=== PATIENT | female | born 1950 | race Caucasian/White ===

== ENCOUNTER 2025-03-07 09:02 | Inpatient (IN) | payer MEDICARE, SELFPAY ==
[2025-03-07] VITALS (29 sets, daily range): BP systolic 81–194; BP diastolic 46–127; BMI 33.7; BMI 33.3
[2025-03-07 02:28] LABS: Hematocrit 46.5 % (37.0-47.0); Hemoglobin 15.5 g/dL (12.0-16.0); Mean Corp Hgb Conc. 33.3 g/dL (33.0-37.0); Mean Corpuscular Volume 99.1 fL (81.0-99.0); Nucleated Red Blood Cells % 0 %; Platelet Count 216 10^3/uL (130-400); Red Cell Dist. Width 13.6 % (11.5-14.5)
[2025-03-07 02:29] LABS: Urine Character Slightly Cloudy (Clear)
--- NOTE | 2025-03-07 02:36 | EDRN ---
This RN spoke w/ provider to request pain medication in waiting room as pt. approached desk c/o severe pain, provider did not place orders and reports must first evaluate pt. once pt. in . No rooms available at this time.
[2025-03-07 02:53] LABS: ALT (SGPT) 17 U/L (0-35); AST (SGOT) 20 U/L (14-36); Albumin 4.1 g/dl (3.5-5.0); Alkaline Phosphatase 91 U/L (38-126); Blood Urea Nitrogen 32 mg/dl (7-17); Calcium 9.7 mg/dl (8.4-10.2); Carbon Dioxide 19 mmol/L (22-30); Chloride 110 mmol/L (98-107); Glucose 173 mg/dl (70-99); Potassium 4.4 mmol/L (3.5-5.1); Sodium 138 mmol/L (135-145); Total Protein 6.9 g/dl (6.3-8.2); eGFR 28.84
[2025-03-07 03:18] LABS: Urine Squamous Cell None seen /LPF (Few)
[2025-03-07 03:19] LABS: Urine White Cell >100 /HPF (0-5)
--- NOTE | 2025-03-07 04:56 | ED.GENMED ---
History of Present Illness
<Velasquez Nolen MD, Resident - Last Filed: 03/07/25 06:19>
General
Chief Complaint: Flank Pain
Source: patient
Exam Limitations: none
Time Seen by Provider: 03/07/25 04:44
History of Present Illness
History of Present Illness:
This is a 74-year-old female with known history of renal stone many years ago presented to the emergency department with left-sided flank pain which started almost 2 to 3 hours ago. Reports some associated with nausea without vomiting. Denies any
dysuria or other urinary symptoms. Denies fever denies trauma, denies chest pain, shortness of breath, recent illness, diarrhea, constipation or any neurological symptoms.
Past History
<Velasquez Nolen MD, Resident - Last Filed: 03/07/25 06:19>
Past History
ED Past Medical History: HTN and Hypothyroidism
ED Past Surgical History: None
Social History
Tobacco: Smoker
Alcohol: None
Family History
Family History: Adopted
Review of Systems
<Velasquez Nolen MD, Resident - Last Filed: 03/07/25 06:19>
Review of Systems
Allergies reviewed?: Yes
Constitutional: Reports no symptoms
EENT: Reports no symptoms
Respiratory: Reports no symptoms
Cardiac: Reports no symptoms
ABD/GI: Reports nausea
: Reports flank pain (Left)
Musculoskeletal: Reports no symptoms
Skin: Reports no symptoms
Neurological: Reports no symptoms
Endocrine: Reports no symptoms
Hematologic/Lymphatic: Reports no symptoms
Psychiatric: Reports no symptoms
Phy Exam
<Velasquez Nolen MD, Resident - Last Filed: 03/07/25 06:19>
General Physical Exam
General Presentation: mild distress
General age: appears stated age
General Skin: warm
General Habitus: normal
Cardiovascular Exam
Cardiovascular Exam: regular rate/rhythm and no murmur
Pulmonary Exam
Pulmonary Exam: lungs clear and no respiratory distress
Gastrointestinal Exam
Gastrointestinal Exam: non tender, soft, non distended and no cva tenderness
Neurological Exam
Neurological Exam: alert
Course
<Velasquez Nolen MD, Resident - Last Filed: 03/07/25 06:19>
Orders/Labs/Results
Orders:
Orders
03/07/25 02:13
Complete Blood Count/With Diff Urgent
Comprehensive Metabolic Panel Urgent
Urinalysis Reflex To Culture Urgent
Date Specimen was Collected: 03/07/25
Time Specimen was Collected: 02:08
Urine Microscopic Reflex Cult Urgent
Urine Culture Urgent
RADHA Source: U
Specimen Description:
Date Specimen was Collected: 03/07/25
Time Specimen was Collected: 02:08
03/07/25 02:44
CT Abd/pel Without Iv Or Oral Urgent
Comment:
Reason For Exam: R flank pain
03/07/25 04:58
0.9% Sodium Chloride 1000 ml [Nss] 1,000 ml IV BOLUS
Morphine Sulfate 4 mg IV NOW STA
03/07/25 05:00
Piperacillin/Tazo 3.375 Gram [Zosyn] 3.375 gram in 50 ml IV NOW
03/07/25 05:08
UROLOGY CONSULT Urgent
Consulting Provider: Zach Luis
Was physician already notified: Yes
03/07/25 05:38
Blood Culture Q30M
RADHA Source: Blood/Venous
Specimen Description:
Blood Culture Q30M
RADHA Source: Blood/Venous
Specimen Description:
03/07/25 06:11
HYDROmorphone [Dilaudid] 0.5 mg IV NOW STA
03/07/25 08:09
Acetaminophen [Tylenol] 1,000 mg .ROUTE .STK-MED ONE
03/07/25 08:10
Acetaminophen [Tylenol] 1,000 mg PO NOW STA
03/07/25 08:14
Fentanyl Citrate/Pf [Sublimaze] 25 mcg IV [id number] PRN
HYDROmorphone [Dilaudid] 0.25 mg IV PACU-Q5MPRN PRN
HYDROmorphone [Dilaudid] 0.5 mg IV PACU-Q5MPRN PRN
Ondansetron Injectable [Zofran] 4 mg IV PACU-ONCEPRN PRN
Prochlorperazine [Compazine] 5 mg IV PACU-ONCEPRN PRN
Notify MD As Directed
Notify physician if: for SDS patients with known or suspected sleep obstructive sleep apnea, monitor in the
PACU.
Notify MD for any apneic/desaturation episodes
O2 Therapy [RESP] Urgent
Titrate/Wean O2 to maintain O2 sat greater than (%): 92
Special Instructions: -Provide supplemental oxygen to achieve O2 sat of 92% or greater.
-After 15 min, may wean O2 and discontinue if patient is able to maintain O2 sat of 92%
or greater during recovery period.
If patient is a discharge home, without oxygen therapy, notify anestheiologist if
unable to maintain O2 SAT of 92% or greater on room air for MD clearance.
03/07/25 08:15
Normosol (Mult Electrolytes) [Normosol-R/Plasmalyte-A] 1,000 ml IV PER PROTOCOL
03/07/25 08:40
NSS 1000mL Bolus over 1 hr 0.9% Sodium Chloride 1000 ml [Nss] 1,000 ml IV BOLUS
Abnormal Lab Results
03/07/25
02:13
WBC 13.4 H 10^3/uL
(4.8-10.8)
MCV 99.1 H fL
(81.0-99.0)
MCH 33.0 H pg
(27.0-31.0)
Abs Immat Gran (auto) 0.1 H 10^3/uL
(0-0.05)
Absolute Neuts (auto) 11.7 H 10^3/uL
(1.4-6.5)
Neutrophils % 86.8 H %
(42.2-75.2)
Lymphocytes % 10.1 L %
(20.5-51.1)
Monocytes % 1.3 L %
(1.7-9.3)
Chloride 110 H mmol/L
(98-107)
Carbon Dioxide 19 L mmol/L
(22-30)
BUN 32 H mg/dl
(7-17)
Creatinine 1.8 H mg/dL
(0.6-1.0)
Glucose 173 H mg/dl
(70-99)
Ur Occult Blood Reflex 4+ A
(Negative)
Urine Nitrite (Reflex) Positive A
(Negative)
Leukocyte Esterase Rfl 3+ A
(Negative)
Urine WBC (Reflex) >100 A /HPF
(0-5)
Urine Glucose 4+ A
(Negative)
Urine Albumin (Reflex) 3+ A
(Neg - Trace)
03/07/25 02:13
03/07/25 02:13
Vital Signs
Initial and Last Documented VS:
Initial Vital Signs
Temp Pulse Resp BP Pulse Ox
36.3 C 92 24 194/101 96
03/07/25 02:00 03/07/25 02:00 03/07/25 02:00 03/07/25 02:00 03/07/25 02:00
Last Documented Vital Signs
Temp Pulse Resp BP Pulse Ox
38.0 C H 98 29 172/77 92
03/07/25 08:07 03/07/25 06:21 03/07/25 06:21 03/07/25 04:30 03/07/25 08:07
<Sang Kaur MD - Last Filed: 03/07/25 08:43>
Orders/Labs/Results
Orders:
Orders
03/07/25 02:13
Complete Blood Count/With Diff Urgent
Comprehensive Metabolic Panel Urgent
Urinalysis Reflex To Culture Urgent
Date Specimen was Collected: 03/07/25
Time Specimen was Collected: 02:08
Urine Microscopic Reflex Cult Urgent
Urine Culture Urgent
RADHA Source: U
Specimen Description:
Date Specimen was Collected: 03/07/25
Time Specimen was Collected: 02:08
03/07/25 02:44
CT Abd/pel Without Iv Or Oral Urgent
Comment:
Reason For Exam: R flank pain
03/07/25 04:58
0.9% Sodium Chloride 1000 ml [Nss] 1,000 ml IV BOLUS
Morphine Sulfate 4 mg IV NOW STA
03/07/25 05:00
Piperacillin/Tazo 3.375 Gram [Zosyn] 3.375 gram in 50 ml IV NOW
03/07/25 05:08
UROLOGY CONSULT Urgent
Consulting Provider: Zach Luis
Was physician already notified: Yes
03/07/25 05:38
Blood Culture Q30M
RADHA Source: Blood/Venous
Specimen Description:
Blood Culture Q30M
RADHA Source: Blood/Venous
Specimen Description:
03/07/25 06:11
HYDROmorphone [Dilaudid] 0.5 mg IV NOW STA
03/07/25 08:09
Acetaminophen [Tylenol] 1,000 mg .ROUTE .STK-MED ONE
03/07/25 08:10
Acetaminophen [Tylenol] 1,000 mg PO NOW STA
03/07/25 08:14
Fentanyl Citrate/Pf [Sublimaze] 25 mcg IV [id number] PRN
HYDROmorphone [Dilaudid] 0.25 mg IV PACU-Q5MPRN PRN
HYDROmorphone [Dilaudid] 0.5 mg IV PACU-Q5MPRN PRN
Ondansetron Injectable [Zofran] 4 mg IV PACU-ONCEPRN PRN
Prochlorperazine [Compazine] 5 mg IV PACU-ONCEPRN PRN
Notify MD As Directed
Notify physician if: for SDS patients with known or suspected sleep obstructive sleep apnea, monitor in the
PACU.
Notify MD for any apneic/desaturation episodes
O2 Therapy [RESP] Urgent
Titrate/Wean O2 to maintain O2 sat greater than (%): 92
Special Instructions: -Provide supplemental oxygen to achieve O2 sat of 92% or greater.
-After 15 min, may wean O2 and discontinue if patient is able to maintain O2 sat of 92%
or greater during recovery period.
If patient is a discharge home, without oxygen therapy, notify anestheiologist if
unable to maintain O2 SAT of 92% or greater on room air for MD clearance.
03/07/25 08:15
Normosol (Mult Electrolytes) [Normosol-R/Plasmalyte-A] 1,000 ml IV PER PROTOCOL
03/07/25 08:40
NSS 1000mL Bolus over 1 hr 0.9% Sodium Chloride 1000 ml [Nss] 1,000 ml IV BOLUS
Abnormal Lab Results
03/07/25
02:13
WBC 13.4 H 10^3/uL
(4.8-10.8)
MCV 99.1 H fL
(81.0-99.0)
MCH 33.0 H pg
(27.0-31.0)
Abs Immat Gran (auto) 0.1 H 10^3/uL
(0-0.05)
Absolute Neuts (auto) 11.7 H 10^3/uL
(1.4-6.5)
Neutrophils % 86.8 H %
(42.2-75.2)
Lymphocytes % 10.1 L %
(20.5-51.1)
Monocytes % 1.3 L %
(1.7-9.3)
Chloride 110 H mmol/L
(98-107)
Carbon Dioxide 19 L mmol/L
(22-30)
BUN 32 H mg/dl
(7-17)
Creatinine 1.8 H mg/dL
(0.6-1.0)
Glucose 173 H mg/dl
(70-99)
Ur Occult Blood Reflex 4+ A
(Negative)
Urine Nitrite (Reflex) Positive A
(Negative)
Leukocyte Esterase Rfl 3+ A
(Negative)
Urine WBC (Reflex) >100 A /HPF
(0-5)
Urine Glucose 4+ A
(Negative)
Urine Albumin (Reflex) 3+ A
(Neg - Trace)
03/07/25 02:13
03/07/25 02:13
Vital Signs
Initial and Last Documented VS:
Initial Vital Signs
Temp Pulse Resp BP Pulse Ox
36.3 C 92 24 194/101 96
03/07/25 02:00 03/07/25 02:00 03/07/25 02:00 03/07/25 02:00 03/07/25 02:00
Last Documented Vital Signs
Temp Pulse Resp BP Pulse Ox
38.0 C H 98 29 172/77 92
03/07/25 08:07 03/07/25 06:21 03/07/25 06:21 03/07/25 04:30 03/07/25 08:07
<Velasquez Nolen MD, Resident - Last Filed: 03/07/25 06:19>
MDM/Problems Addressed
Differential Diagnosis Includes:
Renal stone vs UTI vs less likely muscular pain
MDM/Problems Addressed:
cbc.cmp,UA, BC,
morphine 4mg IV for pain
CT abd/pelvis taken: Showed 5 mm obstructing stone in the left UVJ. Mild hydro ureteral nephrosis. Moderate perinephric fat stranding. No evidence of right hydroureteral nephrosis or obstructive stone. Right renal atrophy.
IV abx: Zosyn, 1 L NSS
urology consulted. Dilaudid 0.5 mg IV for ongoing pain
will admit for further evaluation
<Velasquez Nolen MD, Resident - Last Filed: 03/07/25 06:19>
*Pulse Oximetry
SaO2: 96
Oxygen Mode of Delivery: Room air
Patient hypoxic: no
*Critical Care Note
Total Time (30-74mins, 75-104mins- exclusive of procedures): Not Applicable
ED Attending Note
<Velasquez Nolen MD, Resident - Last Filed: 03/07/25 06:19>
-
Portions of this chart may have been created with voice recognition software.� Occasional wrong word or��sound alike� substitutions may have occurred due to the inherent limitations of voice recognition software.
<Sang Kaur MD - Last Filed: 03/07/25 08:43>
ED Attending Note
Patient seen and examined by attending physician: Yes
I performed a history and physical exam of patient and discussed management with resident, I reviewed resident's note and agree with documented findings and plan of care.: Yes
ED Attending Note:
I have seen and evaluated the patient with a [id number] encounter. I have spoken to the resident and involved in the medical history, the physical exam, medical decision making.
Evaluation and management service: agree unless noted differently below.
Results interpretation: agree unless noted differently below.
Focused HPI: 74-year-old female with history as noted presents to the emergency room for evaluation of flank pain. Patient reports onset of symptoms a few hours ago and have been constant since that time. She reports pain radiating across the back
somewhat worse in the left flank. No clear triggering or relieving factors noted. Associated with nausea and vomiting. She has had similar symptoms with kidney stones in the past and follows with a urologist in [place]. She denies fever or
chills. Denies any dysuria, hematuria, change in frequency. She denies any other acute complaints.
Physical exam: Patient is awake and alert and appears uncomfortable. She is tachycardic, mildly tachypneic. Afebrile. Her abdomen is soft and nontender to deep palpation. No CVA tenderness
Medical Decision Makin-year-old female presents for flank pain as above. Vitals and exam as above. Her labs were significant for leukocytosis to 13.4. CMP shows doubling of her creatinine to 1.8 with metabolic acidosis likely secondary to
uremia. Her urinalysis is positive for infection with bacteria and pyuria, positive nitrites, no squamous cells. CT abdomen pelvis shows obstructive nephrolithiasis on the left and overall clinical picture is concerning for sepsis secondary to UTI
with ureteral obstruction. Treated with Zosyn, fluids. Case discussed with urology for consultation�hold patient n.p.o. with plan for OR. Case discussed with hospitalist for admission.
Discharge Plan
Departure
Patient Disposition: Admit
Date of Disposition: 03/07/25
Time of Disposition: 06:11
Admit to doctor: Qasim
Presentation/result/management discussed w/ accepting MD/DO: Hospitalist
Discharge Problem:
Nephrolithiasis, Acute UTI
Prescriptions:
No Action
albuterol sulfate 1 PUFF HFA aerosol inhaler
2 puff inhalation R QID Qty: 0 0RF
oxycodone-acetaminophen 5 MG/325 MG tablet
1 tab PO Q6HPRN PRN (Reason: pain) Qty: 15 0RF
tamsulosin 0.4 MG capsule
0.4 mg PO DAILY Qty: 5 0RF
ondansetron 4 MG tablet,disintegrating
4 mg PO TIDPRN PRN (Reason: nausea/vomiting) Qty: 12 0RF
Referrals:
UNKNOWN - PT DOES,NOT KNOW [Family Provider]
Interventions
Interventions:
*Risk Screen - Suicide Last Done: 03/07/25 02:00
*General Assessment Last Done: 03/07/25 05:12
*Neglect/Abuse Screening Last Done: 03/07/25 02:00
*ED- Fall Risk Assessment Last Done: 03/07/25 02:00
*ED COVID-19 Vaccine History Last Done: 03/07/25 05:12
JE-Orljnr-Ypksmchbvk Assessment Last Done: 03/07/25 05:42
ED-Female Genitourinary Assessment Last Done: 03/07/25 05:42
Discharge Date and Time
Print Language: ARMENIAN
[2025-03-07] MEDS: NSS 1000 IV ×4 (05:06→19:46)
[2025-03-07] MEDS: MORPHINE SULFATE 4 MG IV (05:06)
[2025-03-07] MEDS: ZOSYN 50 IV ×3 (05:30→19:48)
[2025-03-07] MEDS: DILAUDID 0.5 MG IV (06:32)
--- NOTE | 2025-03-07 07:31 | HPS.HSE ---
Addendum entered and electronically signed by Josseline Killian MD 03/07/25 09:15:
I personally performed a history and physical exam of the patient and discussed management with the resident. I reviewed the resident's note and agree with the documented findings and plan of care HPI/CC.
GENERAL: well developed, well nourished, obese female in no apparent distress--confused
HEENT: NC/AT--now requiring O2 with dropping sats--hard of hearing
HEART: regular rate and rhythm, +S1, +S2, tachycardic
LUNGS : clear to auscultation bilaterally
ABDOM: soft, nontender, nondistended, + bowel sounds
EXT: no cyanosis, clubbing, or edema
NEUROLOGIC: grossly intact--moving around on the stretcher
Severe sepsis secondary to obstructive renal stone with developing septic shock (with lactic acidosis, 3.3)--BP dropping since admission--ADMIT to ICU--going to OR--apprec urology--consult software applications designer--cont zosyn, cont IVF--pressors if needed--await
blood and urine cultures--STAT ABG and lactic acid pending--agree with flomax
Acute hypoxemic resp failure--rapidly requiring O2 with dropping sats--due to sepsis--Required 2 L nasal cannula oxygen to maintain oxygen saturation above 88%
Postrenal acute kidney injury--likely due to obstructing stone--may also have some component of prerenal source with sepsis--cont IVF--will need yu--apprec urology--going to OR
Essential hypertension--meds as clinically relevant
Hypothyroidism--TSH ordered -patient does not have any hypothyroid medications on their home med list
DVT proph
code status--FULL CODE
�
Total Critical Care Time 60 minutes. I was immediately available to the patient and staff. I personally examined, reviewed labs, diagnostic images/reports, interpretations, treatment plans, discussed patient care with other providers and family
or caregivers (if patient is unable to make decisions), entered orders as appropriate and documented the medical record.
Original Note:
Family Physician
-
Family Physician: NOT KNOW UNKNOWN - PT DOES
Chief Complaint
-
Flank pain
History of Present Illness
Patient is a 74-year-old female with known history of renal stones that presented to the emergency department with left-sided flank pain which started approximately 2 to 3 hours prior to her presentation. She has a past medical history of
hypertension and hypothyroidism. She reported some nausea without vomiting associated with the pain. She denied any dysuria or any urinary symptoms. She denied any fever, trauma, chest pain, shortness of breath, recent illness, diarrhea,
constipation or any other neurological symptoms. The patient was given morphine for pain control in the emergency department. A CT of the abdomen and pelvis was taken down in the emergency department which showed a 5 mm obstructing stone in the
left ureterovesical junction. Mild hydro ureteral nephrosis was seen as well. Moderate perinephric fat stranding was seen. No evidence of right hydroureteronephrosis or obstructive stone seen. White blood cells were 13.4, creatinine was 1.8 from
a baseline of 0.9, urine analysis showed greater than 100 white blood cells with no squamous cells, and positive nitrites. Patient was given Zosyn and IV fluid support. Urology was consulted. Patient was admitted with plans to go to the OR for
possible ureteroscopy with lithotripsy/nephrolithotomy.
Medical History
Past Medical History
Past Medical History: Reports HTN and Hypothyroidism
Past Surgical History: Reports None
Social History
Tobacco: Smoker
Family History
Family History: Adopted
Allergies / Home Medications
Allergies reflects when Allergies were last updated in [employer].
Home Medications with original date entered in [employer]
Allergy/Medication List:
Allergies
Allergy/AdvReac Type Severity Reaction Status Date / Time
No Known Allergies Allergy Verified 03/07/25 02:00
Home Medications
albuterol sulfate 90 mcg/actuation aerosol inhaler 2 puff inhalation R QID #0 puffs 09/03/14
ondansetron 4 mg disintegrating tablet 4 mg PO TIDPRN PRN nausea/vomiting #12 tabs 03/17/17
oxycodone-acetaminophen 5 mg-325 mg tablet 1 tab PO Q6HPRN PRN pain #15 tabs 03/17/17
tamsulosin 0.4 mg capsule 0.4 mg PO DAILY #5 caps 03/17/17
Review of Systems
-
History Source: Patient
Constitutional: Reports No Symptoms
EENT: Reports No Symptoms
Respiratory: Reports No Symptoms
Cardiac: Reports No Symptoms
Abdomen/GI: Reports No Symptoms
: Reports Flank Pain (Left)
Musculoskeletal: Reports No Symptoms
Skin: Reports No Symptoms
Neurological: Reports No Symptoms
Endocrine: Reports No Symptoms
Hematologic/Lymphatic: Reports No Symptoms
Physical Exam
Vital Signs
Vital Signs
Temp Pulse Resp BP Pulse Ox
98.6 F 98 29 172/77 96
03/07/25 06:41 03/07/25 06:21 03/07/25 06:21 03/07/25 04:30 03/07/25 04:59
Physical Exam
General: Well Developed, Well Nourished and Pain (Left flank)
HEENT: NormoCephalic, Anicteric and Moist mucous membranes
Respiratory: Clear; No Wheezes, Rales, Rhonchi or Crackles
Cardiac: S1/S2 and Regular Rhythm
Breast: Deferred by me
GI: Soft, Non Tender, Non Distended and Normal Bowel Sounds
Rectal: Deferred by Provider
Genito-urinary: Deferred by me
Musculoskeletal: No Clubbing, No Cyanosis and No Edema
Skin: Warm and Dry; No Rash, Jaundice or Ulcers
Neuro: Awake, Alert and Oriented
Psych: Calm
Laboratory Results
-
03/07/25 02:13
03/07/25 02:13
Laboratory Results
Total Bilirubin 0.7 mg/dl (0.2-1.3) 03/07/25 02:13
AST 20 U/L (14-36) 03/07/25 02:13
ALT 17 U/L (0-35) 03/07/25 02:13
Alkaline Phosphatase 91 U/L (38-126) 03/07/25 02:13
Impression/Plan
-
Assessment and Plan:
-Sepsis secondary to obstructive nephrolithiasis: Unresolved
On arrival to the emergency department the patient had an elevated blood pressure of 194/101, respirations were 29, patient had leukocytosis with a white blood cell count of 13.4, elevated temperature of 100.4, CT scan of the abdomen showed
obstructive nephrolithiasis with a 5 mm obstructing stone in the left ureterovesicular junction.
Required 2 L nasal cannula oxygen to maintain oxygen saturation above 88%
Blood cultures -pending
Urine culture -pending
IV Zosyn given
Lactic acid pending
- Postrenal acute kidney injury:
Patient presented to the emergency department with a creatinine of 1.8 elevated from baseline of 0.9
Secondary to 5 mm obstructing stone in the left ureterovesicular junction
Trend creatinine
Sent to the OR for possible ureteroscopy with lithotripsy/nephrolithotomy
-Obstructive nephrolithiasis: Unresolved
CT of the abdomen and pelvis showed a 5 mm obstructing stone in the left ureterovesicular junction with mild hydroureter nephrosis.
Morphine sulfate and hydromorphone given for pain control
IV fluid support
Patient kept n.p.o. prior to procedure
Tamsulosin 0.4 mg
Hold nephrotoxic agents and renally dose medication
Patient scheduled for the OR for possible ureteroscopy with lithotripsy/nephrolithotomy.
- Essential hypertension: Monitoring
Will continue to follow her blood pressure and trend
- Hypothyroidism:
TSH ordered -patient does not have any hypothyroid medications on their home med list
[2025-03-07] MEDS: TYLENOL 1000 MG PO (08:10)
--- NOTE | 2025-03-07 09:04 | W.PN.URO.CBU ---
Today's Communication / Plan
-
to ,op room
Assessment / Plan
-
sepsis syndrome will place stent if stable will try and remove calculus
Diagnosis
-
Date of Service: March 07, 2025
-
Patient Diagnosis:sepsis syndrome to obstructing distal left 5 mm stone
Post Op Day:
Subjective
-
feels porly deveoloping fevr since arrival none before at home
Objective
-
Vital Signs
Temp Pulse Resp BP Pulse Ox
100.4 F H 98 29 172/77 92
03/07/25 08:07 03/07/25 06:21 03/07/25 06:21 03/07/25 04:30 03/07/25 08:07
Laboratory Results
03/07/25 02:13
03/07/25 02:13
Review of Systems
-
Constitutional: Fever
Abdomen/GI: Abdominal Pain
: Frequency and Flank Pain
Physical Exam
-
General - well develope sob febrole tachypneic 100.5 temp alert ox 3
Chest - clear bilaterally
Abdomen - soft, non-tender, positive bowel sounds, no CVAT, no incisional pain or distention
Genitalia - normal
Rectal - normal
Skin - warm & dry with no rash
Neuro - AOx3, no motor deficits
Extremities - no clubbing, no cyanosis, no edema
Incision - clean, dry
Dressing - clean, dry, intact
Care Review
Data Reviewed
Discussed with: Nursing and Family
CT Scan: Image Pers Reviewed
Total Time Spent with Patient (in minutes): 65
--- NOTE | 2025-03-07 10:05 | W.SUR.POST ---
Surgical Immediate Post Op
Note
Pre Op Diagnosis: sepsi from obstructing prox left uretral stone
Post Op Diagnosis: smae
Procedure Performed: left ureteroscopy and laser lithotripst stent placement
Primary Surgeon: mikayla
Secondary Surgeons:
Anesthesia: katin general
Estimated Blood Loss: 2
Fluids: nss
Drains/Shunts: 6 fr 24 cm jj stent
Specimens/Cultures: urine
Doppler/Duplex/Angio (Y/N):
Complications: 0l g stone prox left urerter with high grade obstruction laserd to get wire past amd stented
[2025-03-07] MEDS: DUONEB 3 ML INH (10:21)
--- NOTE | 2025-03-07 10:59 | CON.INTV ---
Consultation
Consultation Request
Date/Time Consultation Requested: 03/07/2025-10 AM
Date/Time Consultation Performed: 03/07/2025-10:30 AM
Requesting Provider: Dr. Killian
Performing Provider: Dr. Trinh
Reason for Consultation: sepsis/critical care management
Medical History
-
Chief Complaint: sepsis
History of Present Illness:
74-year-old smoking female with history of hypertension, hypothyroid and renal stones presented with left flank pain and noted to be septic, placed on antibiotics and urology performed left uteroscopy and laser lithotripsy and stent
placement-assistant distribution manager consulted for sepsis/critical care management 03/07/2025. The patient is very hard of hearing. She denies any shortness of breath, chest congestion, adductive cough, chest pain or abdominal pain
Past Medical History
Past Medical History: None (. Hypertension. Renal calculi. Hypothyroid.)
Social History
Tobacco: Smoker ( 44-uthp-oron-ongoing)
Drug: None
Living: With Family
Occupational Exposures: No known asbestos exposure
Environmental Exposures: no known tuberculosis exposure
Family History
Family History: Adopted
Allergies / Home Medications
Allergies
Allergy/AdvReac Type Severity Reaction Status Date / Time
No Known Allergies Allergy Verified 03/07/25 02:00
Home Medications
�Medication �Instructions �Recorded �Confirmed �Last Taken �Type
albuterol sulfate 90 mcg/actuation 2 puff inhalation R QID #0 puffs 09/03/14 Unknown Rx
aerosol inhaler
ondansetron 4 mg disintegrating 4 mg PO TIDPRN PRN nausea/vomiting 03/17/17 Unknown Rx
tablet #12 tabs
oxycodone-acetaminophen 5 mg-325 1 tab PO Q6HPRN PRN pain #15 tabs 03/17/17 Unknown Rx
mg tablet
tamsulosin 0.4 mg capsule 0.4 mg PO DAILY #5 caps 03/17/17 Unknown Rx
Review of Systems
-
Unable to Obtain full review of systems at this time due to: Other ( per HPI)
Vitals / Labs / Diagnostic Testing
Vital Signs
Temp Pulse Resp BP Pulse Ox
98.6 F 118 18 130/111 96
03/07/25 10:57 03/07/25 10:22 03/07/25 10:22 03/07/25 08:48 03/07/25 10:22
Lab Data
03/07/25 02:13
03/07/25 02:13
Diagnostic Testing:
Physical Exam
-
Exam:
well-nourished and well-developed in no apparent distress
HEENT-atraumatic, normocephalic
Neck-supple, no JVD, no bruit
Heart-regular rate and rhythm-no murmurs, rubs or gallops
Chest-clear to auscultation, no wheezes, crackles
Back-no tenderness
Abdomen-soft, nontender, nondistended, no hepatosplenomegaly
Extremities-no cyanosis, clubbing, edema and good peripheral pulses
Integument-intact, no rashes, lesions or ecchymosis
Neurology-alert and oriented, nonfocal motor and sensory exam
Assessment
-
74-year-old smoking female with history of hypertension, hypothyroid and renal stones presented with left flank pain and noted to be septic, placed on antibiotics and urology performed left uteroscopy and laser lithotripsy and stent
placement-assistant distribution manager consulted for sepsis/critical care management 03/07/2025.
Septic shock unresponsive to fluids requiring pressors due to urosepsis
Obstructing left ureteral stone
Status post emergent left uteroscopy/laser lithotripsy and stent placement-Dr. Luis 03/07/2025
Hematuria
Leukocytosis
Metabolic acidosis
DENNY
Hyperglycemia
Lactic acidosis
Conditions present prior to admission:
Hypertension.
Renal calculi.
Hypothyroid.
Cigarette smoker
COPD suspected
Obstructive sleep apnea suspected
Plan
Admit patient to medical intensive care unit for persistent hypotension despite fluid resuscitation requiring pressors
Supplement oxygen as needed
High flow oxygen if needed
BiPAP if necessary
Intubate and mechanically ventilate if necessary
Aspiration precautions
Nebulizers if needed
Patient reports she is on Trelegy and albuterol as an outpatient and follows pulmonary--I checked records and she does not follow locally
Obtain cultures
Empiric antibiotics
Consider Infectious disease consultation
Monitor leukocytosis
Fluid resuscitation with 30 mL/kg crystalloid-preferably lactated ringer-(less DENNY) with subsequent boluses as needed
Monitor lactate
Follow CVP if possible
Attempt noninvasive bedside tissue perfusion evaluation to see if fluid bolus responsive
Measure pulse pressure and stroke volume variation if patient on ventilator, passively breathing without arrhythmia and with temporary large tidal volume ventilation and if > 13% then likely fluid bolus responsive
If patient active then consider measuring bedside leg lift for 3 minutes and if cardiac output increases or if there is a rise of 2-4 on end-tidal CO2 then fluid bolus
If bedside ultrasound available then measure IVC diameter variation to evaluate for fluid bolus responsiveness
Begin pressors as needed for MAP goal of 65-Norepinephrine first, then Vasopressin and consider Angiotensin II if continues to be hypotensive
Consider methylene blue if available-specific inhibitor of induced nitric oxide synthase iNOS and its downstream enzyme soluble guanylate cyclase-noninferiority study shown to reduce time to vasopressor discontinuation, decreased ICU length of stay,
hospital stay but no change in mortality-published Critical Care 11/12/2022
If persistently hypotensive then consider checking random cortisol-hydrocortisone if random less than 3, if 3-15 then consider ACTH stimulation test
If persistently hyperthermic then correcting hyperthermia can decrease pressor requirements, increased chances of reversal of shock and decrease mortality
CT abdomen noted
Urology consulted-correspondence reviewed
Status post emergent left uteroscopy/laserlitholithotripsy and stent placement
Monitor blood sugar
Insulin supplementation as needed
Monitor renal function after fluid resuscitation
If renal function does not improve consider nephrology evaluation
Smoking cessation counseling ongoing
DVT prophylaxis-mechanical for now with significant hematuria-changed to heparin or Lovenox when hematuria improved
Early nutrition if possible
Early mobilization/bedside range of motion
Outpatient pulmonary [id number], ongoing smoking cessation counseling, yearly low-dose lung cancer screening CT if eligible, etc-she reports she follows somewhere locally-not [facility]
Consider outpatient sleep apnea workup-at risk-I suspect her outpatient glass mold repairer might might have addressed this in the past-will attempt to get records
Critical care statement: A total of 75 minutes of critical care time was provided for this patient today. This includes management of unstable vital signs, evaluation of the patient at bedside, reviewing the patient's pertinent medical records
including radiographs, sepsis management, pressor management, microbiology, laboratory evaluations, and discussion with primary team, consultants, pharmacy, nutrition, physical therapy, case management, charge nurse, critical care nursing, and
respiratory therapy.
Diagnostic data:
Chest x-ray 09/03/2014-NAD
CT abdomen and pelvis 03/07/2025-03/07/25-7 mm obstructing stone proximal left ureter with mild left-sided hydronephrosis, right kidney is mildly atrophic with 3 mm nonobstructing stone in the inferior pole, aorto biliary endograft with excluded
aneurysmal sac measuring approximately 3.4 cm, lung bases no definitive lesion or focal airspace disease
Data Reviewed
-
EKG: Report reviewed by me
Radiology: Image personally visualized and interpreted and Report reviewed by me
CT Scan: Report reviewed by me
Medical Tests (Nuc Med, Echo etc): Report reviewed by me
Labs: Labs reviewed by me
Old Records: Reviewed
Critical Care Time (in minutes): 75
[2025-03-07 11:06] LABS: B.E. -13.1 mmol/L; O2 Saturation % 97.7 % (94-98); PCO2 36 mmHg (32-35); PO2 88 mmHg (83-108)
[2025-03-07 11:08] LABS: HCO3 14.1 mmol/L (21-28)
--- NOTE | 2025-03-07 12:15 | W.PN.SEPSIS ---
Sepsis
Vital Signs
Temp Pulse Resp BP Pulse Ox
98.6 F 97 21 91/58 95
03/07/25 10:57 03/07/25 11:45 03/07/25 11:45 03/07/25 11:30 03/07/25 11:45
Physical Exam
Physical Exam:
A focused exam was performed after fluid resuscitation.
Capillary Refill
Right Upper Extremity:
Marleny Time: Less than 3 sec
Pulse Evaluation
Right Radial:
Pulse Evaluation: Present
--- NOTE | 2025-03-07 13:27 | PTCARENOTE ---
Rec'd pt at approx 1100 from PACU. Pt extremely [place], groggy but restless in bed. Denies any pain/SOB. CHG bath completed. Monitor SR/ST. Lungs dim with exp wheezes on exertion. +orthopnea. pox 95% on 5LNC. +BS, abd large soft/nt. Holt draining
punch colored urine. Within an hour pt more awake but forgetful. Significant other at bedside, updated. Hearing aid brought in by family member. Diet ordered.
[2025-03-07] MEDS: LR 500 IV (16:54)
--- NOTE | 2025-03-07 16:56 | PTCARENOTE ---
SBP 80's, MAP >65. Dr Trinh aware. 500ml LR bolus ordered and infusing at this time.
--- NOTE | 2025-03-07 17:56 | PTCARENOTE ---
Fluid bolus completed. SBP 90's. Urine has cleared up to yellow.
[2025-03-08] VITALS (21 sets, daily range): BP systolic 85–122; BP diastolic 46–81; PULSE 122; O2SAT 93; BMI 33.9
[2025-03-08] MEDS: ZOSYN 50 IV ×4 (02:51→20:41)
[2025-03-08] MEDS: NSS 1000 IV ×3 (02:51→23:10)
--- NOTE | 2025-03-08 03:09 | PTCARENOTE ---
Pts initial assessment as documented. Assessment unchanged.
[2025-03-08 05:12] LABS: Hematocrit 39.0 % (37.0-47.0); Hemoglobin 13.0 g/dL (12.0-16.0); Mean Corp Hgb Conc. 33.3 g/dL (33.0-37.0); Mean Corpuscular Volume 100.8 fL (81.0-99.0); Platelet Count 95 10^3/uL (130-400); Red Cell Dist. Width 14.2 % (11.5-14.5)
[2025-03-08 05:20] LABS: ALT (SGPT) 21 U/L (0-35); AST (SGOT) 50 U/L (14-36); Albumin 2.7 g/dl (3.5-5.0); Alkaline Phosphatase 43 U/L (38-126); Calcium 8.1 mg/dl (8.4-10.2); Carbon Dioxide 19 mmol/L (22-30); Chloride 116 mmol/L (98-107); Estimated Creatinine Clearance 21 ml/min; Glucose 93 mg/dl (70-99); Magnesium 1.9 mg/dl (1.6-2.3); Potassium 5.3 mmol/L (3.5-5.1); Sodium 139 mmol/L (135-145); Total Protein 5.2 g/dl (6.3-8.2); eGFR 19.44
[2025-03-08 05:43] LABS: Blood Urea Nitrogen 38 mg/dl (7-17)
[2025-03-08 06:10] LABS: Nucleated Red Blood Cells % 0 %
--- NOTE | 2025-03-08 07:35 | W.PN.INTV ---
Addendum entered and electronically signed by Briseyda Gleason MD 03/08/25 12:28:
Patient transferred out of ICU. We will sign off. Please call with questions
Original Note:
Today's Communication / Plan
Recommendations
Add budesonide, DuoNebs
Continue antibiotics, follow cultures. May require repeat cultures
Status promptly, PT/OT
If okay with urology, add subcutaneous heparin 5000 units every 8 hours
Tobacco cessation efforts
Assessment
-
74-year-old smoking female with history of hypertension, hypothyroid and renal stones presented with left flank pain and noted to be septic, placed on antibiotics and urology performed left uteroscopy and laser lithotripsy and stent
placement-release engineer consulted for sepsis/critical care management 03/07/2025.
Septic shock unresponsive to fluids requiring pressors due to urosepsis
Obstructing left ureteral stone
Status post emergent left uteroscopy/laser lithotripsy and stent placement-Dr. Luis 03/07/2025
Hematuria
Leukocytosis
Metabolic acidosis
DENNY
Hyperglycemia
Lactic acidosis
Conditions present prior to admission:
Hypertension.
Renal calculi.
Hypothyroid.
Cigarette smoker
COPD suspected
Obstructive sleep apnea suspected
Plan/recommendations
At this time, patient remains critically ill but improving. Blood pressure marginal, systolic pressure 80s. Responding to IV fluids. Was ordered for norepinephrine, has yet to be started. Positive blood culture noted gram-negative bacilli.
Remains on Zosyn therapy
Chest exam with wheezing and rhonchi. Patient is active smoker
Creatinine increased to 2.5, urine output adequate
Moving forward
Continue with supportive care, IV fluids
Has not required pressors, will discontinue
Seems to be responding to fluids
Continue with IV antibiotics, Zosyn therapy
Blood cultures noted
Sepsis syndrome post ureteral manipulation
Holt catheter per urology, stent in place
Will require repeat blood cultures to confirm resolution of bacteremia
Await susceptibility
Consider ID evaluation
Hyperkalemia, elevated creatinine noted
Follow closely
Urine output remains adequate
Incentive spirometry, out of bed to chair, PT/OT
Chest exam is noted
Start budesonide twice a day, DuoNebs 3 times daily
Resume outpatient Trelegy regimen at time of discharge
Smoking cessation counseling ongoing
DVT prophylaxis: Would like to add subcutaneous heparin if okay with urology. Mechanical prophylaxis as well
GI prophylaxis: Not indicated
Outpatient pulmonary [id number], ongoing smoking cessation counseling, yearly low-dose lung cancer screening CT if eligible, etc-she reports she follows somewhere locally-not [facility]
Consider outpatient sleep apnea workup-at risk-I suspect her outpatient rooming house inspector might might have addressed this in the past-will attempt to get records
Critical care statement: A total of 31 minutes of critical care time was provided for this patient today. This includes management of unstable vital signs, evaluation of the patient at bedside, reviewing the patient's pertinent medical records
including radiographs, sepsis management, pressor management, microbiology, laboratory evaluations, and discussion with primary team, consultants, pharmacy, nutrition, physical therapy, case management, charge nurse, critical care nursing, and
respiratory therapy.
Diagnostic data:
Chest x-ray 09/03/2014-NAD
CT abdomen and pelvis 03/07/2025-03/07/25-7 mm obstructing stone proximal left ureter with mild left-sided hydronephrosis, right kidney is mildly atrophic with 3 mm nonobstructing stone in the inferior pole, aorto biliary endograft with excluded
aneurysmal sac measuring approximately 3.4 cm, lung bases no definitive lesion or focal airspace disease
Subjective Dataa
Subjective Data
Date of Service:
Date of Service: March 08, 2025
Subjective:
Patient is feeling much improved. She denies shortness of breath, abdominal pain, nausea. She admits to mild dry cough. She was admitted to ICU postprocedure for possible pressor requirements
Objective Data
Data Reviewed
Vital Signs / I&O / Oxygen:
Vital Signs
Temp Pulse Resp BP Pulse Ox
98.5 F 85 27 117/65 96
03/08/25 07:23 03/08/25 06:05 03/08/25 06:05 03/08/25 06:05 03/08/25 04:45
Intake and Output
03/07/25 03/08/25 03/09/25
06:59 06:59 06:59
Intake Total 4480 / 4480
Output Total 2175 / 2175
Balance 2305 / 2305
SaO2 96
Nasal Cannula flow liters per 4
minute
Physical Exam
General: Comfortable and Other (Large neck)
HEENT: Normocephalic and Anicteric
Cardiovascular: S1-S2, Regular Rhythm, Murmur (n), Rub (n) and Peripheral Edema (tr)
Respiratory: Wheeze (few), Crackles (n), Rhonchi (few) and Non-Labored Respirations
GI: Soft, Non Distended (Obese) and Non Tender
Neurology: Awake, Alert, Oriented and No Motor Deficits (Moves all extremities)
Skin: Cyanosis (n), Jaundice (n) and Rash (n)
Labs/Micro/Reports
Lab Data
03/08/25 04:43
03/08/25 04:43
Laboratory Results
03/07/25
11:00
pH 7.20 L
pCO2 36 H
pO2 88
HCO3 14.1 L*
O2 Delivery Level
Microbiology
03/07/25 05:38 Blood/Venous Blood Culture - Preliminary
No Growth in 24 hours- Final report to follow
03/07/25 05:38 Blood/Venous Blood Culture - Preliminary
No Growth in 24 hours- Final report to follow
--- NOTE | 2025-03-08 08:00 | PTCARENOTE ---
Assumed care of patient. Pt rec'd alert and awake. Forgetful. Garbled speech. Pt feels mouth is 'coated w/ mucous'...oral care done. Pt sounds less garbled. Bilateral hearing aids in. Able to move all extremities and use call flores. S1 S2 reg
w/ NSR on monitor. Weak PP. No edema. Knee hi SCD's on. Rec'd on 4L N/C..sats 96%. 02 decreased to 2L N/C...sats 94-96%. Lungs diminished and coarse throughout. Moist NPC noted. Abdomen obese...+BS. Regular diet..takes po meds w/o issue.
Poor appetite. Holt (in for DENNY) draining yellow urine w/ sediment. Skin pale...WNL. 18P RAC. 20P RH w/ IVF's infusing. VS documented. Safe environment confirmed. Will continue to monitor.
--- NOTE | 2025-03-08 08:01 | W.PN.HOSP.TC ---
Today's Communication/Plan
-
Blood cultures positive for gram-negative bacilli -awaiting sensitivities
Continue Zosyn
Patient off of Levophed
Holt can be removed once patient up and out of bed and ambulating
Urology plans for stent removal at a later time not during this admission
Assessment / Plan
Assessment / Plan
Assessment and Plan:
-Sepsis secondary to obstructive nephrolithiasis with bacteremia: Unresolved
On arrival to the emergency department the patient had an elevated blood pressure of 194/101, respirations were 29, patient had leukocytosis with a white blood cell count of 13.4, elevated temperature of 100.4, CT scan of the abdomen showed
obstructive nephrolithiasis with a 5 mm obstructing stone in the left ureterovesicular junction.
Required 2 L nasal cannula oxygen to maintain oxygen saturation above 88%
Blood cultures -blood cultures positive with gram negative bacilli -pending sensitivity
Urine culture -pending
IV Zosyn given
Lactic acid pending
Levophed discontinued, patient responded to fluid bolus 500 mL
- Postrenal acute kidney injury: Unresolved
Patient presented to the emergency department with a creatinine of 1.8 elevated from baseline of 0.9
Secondary to 5 mm obstructing stone in the left ureterovesicular junction
Trend creatinine
Patient tolerated her left ureteroscopy and left lithotripsy with stent placement on 03/07/2025
Patient currently Holt status -will remove Holt once patient is up and out of bed and ambulating
-Obstructive nephrolithiasis: Monitoring - improving
CT of the abdomen and pelvis showed a 5 mm obstructing stone in the left ureterovesicular junction with mild hydroureter nephrosis.
Morphine sulfate and hydromorphone given for pain control
IV fluid support
Patient kept n.p.o. prior to procedure
Tamsulosin 0.4 mg
Hold nephrotoxic agents and renally dose medication
Patient tolerated her left ureteroscopy and left lithotripsy with stent placement on 03/07/2025
Patient currently Holt status -will remove Holt once patient is up and out of bed and ambulating
- Thrombocytopenia: Monitoring
Patient had a platelet count of 95 on 03/08/2025, we will continue to monitor
No signs of active bleeding presently
- Essential hypertension: Monitoring
Will continue to follow her blood pressure and trend
- Hypothyroidism:
TSH ordered -patient does not have any hypothyroid medications on their home med list
Imaging:
-Abdomen/pelvis CT conducted on 03/07/2025:
Image quality is mildly degraded by motion artifact.
There is an approximately 7 mm obstructing stone in the proximal left ureter with associated mild left-sided hydronephrosis. There is asymmetric perinephric stranding along the left kidney for which infection cannot be excluded. Recommend
correlation with urinalysis.
The right kidney is mildly atrophic with a 3 mm nonobstructing stone in the inferior pole.
There is mild wall thickening along the ascending colon likely secondary to underdistention although GI follow-up may be considered.
Aortobiiliac endograft with excluded aneurysm sac measuring approximately 3.4 cm. There is possible mild focal prominence of the distal descending thoracic aorta measuring 3.6 cm. Consider follow-up CTA chest for further evaluation.
- Abdominal x-ray conducted on 03/07/2025
Fluoroscopy provided and static images obtained for procedure guidance
-Subtle linear density within the left lower lung, new from previous exams, and likely mild atelectasis.
Anticipated Discharge: 24 - 48 hours
Subjective/Interval History
-
Date of Service: March 08, 2025
Met with patient at the bedside. She is doing slightly better than she did yesterday but has major complaints about difficulty sleeping. She states that she is a stomach sleeper and that the hospital but does not allow her to sleep comfortably.
She also is anxious about being discharged soon and hopes that she will be discharged so that she can return home. Supportive counseling and patient education provided at the bedside. Patient hopes to have her Holt removed and knows that she will
have to ambulate in order for the Holt to be removed.
Objective Data
-
Labs:
Laboratory Results
03/08/25
04:43
WBC 27.2 H
Hgb 13.0
Hct 39.0
Plt Count 95 L D
Sodium 139
Potassium 5.3 H
Chloride 116 H
Carbon Dioxide 19 L
BUN 38 H
Creatinine 2.5 H
Glucose 93
Calcium 8.1 L D
Total Bilirubin 0.8
AST 50 H
ALT 21
Alkaline Phosphatase 43
Vital Signs:
Vital Signs
Temp Pulse Resp BP Pulse Ox
98.5 F 85 27 117/65 96
03/08/25 07:23 03/08/25 06:05 03/08/25 06:05 03/08/25 06:05 03/08/25 04:45
I&O
03/07/25 03/08/25 03/09/25
06:59 06:59 06:59
Intake Total 4480 / 4480
Output Total 2175 / 2175
Balance 2305 / 2305
Review of Systems
-
History Source: Patient
Constitutional: Reports Sleep Disturbance
EENT: Reports No Symptoms Reported
Respiratory: Reports No Symptoms
Cardiac: Reports No Symptoms
Abdomen/GI: Reports No Symptoms
Breast: Reports No Symptoms
Genitourinary: Reports No Symptoms
Musculoskeletal: Reports No Symptoms
Skin: Reports No Symptoms
Neuro: Reports No Symptoms
Endocrine: Reports No Symptoms
Hematologic / Lymphatic: Reports No Symptoms
Allergy / Immunology: Reports No Symptoms
Physical Exam
-
General: Well Developed, Well Nourished, No Apparent Distress and Obese
HEENT: Normocephalic, Atraumatic and Moist Mucous Membranes
Respiratory: Clear to Auscultation and Non Labored Respirations; Negative Wheezes, Rales, Rhonchi or Crackles
Cardiac: Regular Rhythm and S1/S2
Breast: Deferred by me
GI: Soft, Nontender, Nondistended and Normal Bowel Sounds
Genito-urinary: Turbid Urine and Holt
Musculoskeletal: No Clubbing, No Cyanosis and No Edema
Skin: Warm, Dry and Normal Turgor; Negative Rash, Ulcers or Lesions
Neuro: Awake, Alert, Oriented and AO x 3
Psych: Anxious
[2025-03-08] MEDS: FLOMAX 0.4 MG PO (08:32)
[2025-03-08] MEDS: DUONEB 3 ML INH ×4 (09:55→19:21)
--- NOTE | 2025-03-08 10:55 | W.PN.URO.CBU ---
Today's Communication / Plan
-
may remove yu continue present care
Assessment / Plan
-
sepsis syndrome stone manipulated stented may remove yu
Diagnosis
-
Date of Service: March 08, 2025
-
Patient Diagnosis:
Post Op Day:
Patient Diagnosis:sepsis syndrome to obstructing distal left 5 mm stone
Post Op Day:
Subjective
-
less pain
Objective
-
Vital Signs
Temp Pulse Resp BP Pulse Ox
97.9 F 86 24 122/70 93
03/08/25 10:41 03/08/25 09:59 03/08/25 09:59 03/08/25 09:00 03/08/25 09:59
Intake and Output
03/07/25 03/08/25 03/09/25
06:59 06:59 06:59
Intake Total 4480 / 4605 1030 / 1030
Output Total 2175 / 2175 375 / 375
Balance 2305 / 2430 655 / 655
Intake:
Oral fluids 480 / 480 480 / 480
IV fluids (Total) 2500 / 2625 500 / 500
Nss 1,000 ml @ 125 mls/hr IV . 2500 / 2625 500 / 500
Q8H REYNA Rx#:[id number]
IV piggybacks 1500 / 1500 50 / 50
Output:
Urine, Yu 725 / 725 375 / 375
Urine, Voided 1450 / 1450
Laboratory Results
03/08/25 04:43
03/08/25 04:43
Review of Systems
-
Respiratory: Cough and Trouble Breathing
: Frequency and Dark Urine
Physical Exam
-
General - well developed, well nourished, no acute distress
Chest - clear bilaterally
Abdomen - soft, non-tender, positive bowel sounds, no CVAT, no incisional pain or distention
Genitalia - normal
Rectal - normal
Skin - warm & dry with no rash
Neuro - AOx3, no motor deficits
Extremities - no clubbing, no cyanosis, no edema
Incision - clean, dry
Dressing - clean, dry, intact
Care Review
Data Reviewed
Discussed with: Nursing
--- NOTE | 2025-03-08 11:55 | PTCARENOTE ---
Pt OOB in chair w/ assist x 2. Unsteady gait noted. Off oxygen...sats 91-93%. Lungs diminished w/ bibasilar crackles R > L. Encouraged coughing and deep breathing. VS documented. Call flores within reach. Will continue to monitor.
--- NOTE | 2025-03-08 12:06 | CM ---
Initial assessment completed with patient who lives with her twin sister in a 1 story plus basement home with 5 steps with B/L rails to enter. TRAFFIC DIRECTOR patient was independent in ADL's and ambulation and drove. She does have a SPC and rollator but does
not use. No in-home services. No service. Does have HC-POA. PCP is Dr. Kasie Hutchinson and Pharmacy is [facility] on [address] in [place], [place]. Discharge POC: TBD based on medical progression.
[2025-03-08 12:44] LABS: TSH 0.42 uIU/ml (0.47-4.68)
[2025-03-08] MEDS: OFIRMEV 100 IV (15:52)
--- NOTE | 2025-03-08 16:00 | PTCARENOTE ---
Pt c/o all over body aches. aware...ofirmev x 1 provided.
[2025-03-08 16:18] LABS: Blood Urea Nitrogen 42 mg/dl (7-17); Calcium 7.6 mg/dl (8.4-10.2); Carbon Dioxide 14 mmol/L (22-30); Chloride 115 mmol/L (98-107); Estimated Creatinine Clearance 22 ml/min; Glucose 134 mg/dl (70-99); Potassium 4.3 mmol/L (3.5-5.1); Sodium 137 mmol/L (135-145); eGFR 20.42
[2025-03-08] MEDS: NICODERM TRANSDERMAL 21 MG TRANSDERM (17:01)
[2025-03-08] MEDS: PERCOCET 5/325 1 TABLET PO (17:06)
[2025-03-08] MEDS: PULMICORT 0.5 MG INH (19:21)
[2025-03-08] MEDS: HEPARIN 5000 UNITS SC (20:41)
[2025-03-08] MEDS: MUCINEX 600 MG PO (20:41)
[2025-03-09] VITALS (11 sets, daily range): BP systolic 93–136; BP diastolic 42–90; BMI 35.4
[2025-03-09] MEDS: ZOSYN 50 IV ×4 (02:19→21:07)
[2025-03-09] MEDS: PERCOCET 5/325 1 TABLET PO ×2 (02:19→20:03)
[2025-03-09 04:44] LABS: Hematocrit 36.4 % (37.0-47.0); Hemoglobin 11.9 g/dL (12.0-16.0); Mean Corp Hgb Conc. 32.7 g/dL (33.0-37.0); Mean Corpuscular Volume 101.7 fL (81.0-99.0); Platelet Count 81 10^3/uL (130-400); Red Cell Dist. Width 14.3 % (11.5-14.5)
[2025-03-09 05:09] LABS: ALT (SGPT) 24 U/L (0-35); AST (SGOT) 47 U/L (14-36); Albumin 2.6 g/dl (3.5-5.0); Alkaline Phosphatase 41 U/L (38-126); Blood Urea Nitrogen 48 mg/dl (7-17); Calcium 7.8 mg/dl (8.4-10.2); Carbon Dioxide 15 mmol/L (22-30); Chloride 117 mmol/L (98-107); Estimated Creatinine Clearance 22 ml/min; Glucose 98 mg/dl (70-99); Potassium 4.3 mmol/L (3.5-5.1); Sodium 137 mmol/L (135-145); Total Protein 5.1 g/dl (6.3-8.2); eGFR 20.42
[2025-03-09 06:22] LABS: Absolute Neutrophils -Man Diff 20.5 10^3/uL (1.4-6.5)
[2025-03-09 06:23] LABS: Macrocytosis 3+; Normal RBC Morphology No; Platelets Checked Yes; Total Cells Counted 100
[2025-03-09] MEDS: DUONEB 3 ML INH ×4 (07:08→19:02)
[2025-03-09] MEDS: PULMICORT 0.5 MG INH ×2 (07:08→19:01)
[2025-03-09] MEDS: NSS 1000 IV (07:52)
--- NOTE | 2025-03-09 08:30 | W.PN.HOSP.TC ---
Today's Communication/Plan
-
Blood cultures positive for E. coli
Continue IV Zosyn
Continue tamsulosin
Following final cultures and sensitivities
Continue budesonide and DuoNebs
Acapella given
Prednisone 40 mg p.o. for 5 days given
Patient downgraded to telemetry
Assessment / Plan
Assessment / Plan
Assessment and Plan:
-Sepsis secondary to obstructive nephrolithiasis with bacteremia: Unresolved
On arrival to the emergency department the patient had an elevated blood pressure of 194/101, respirations were 29, patient had leukocytosis with a white blood cell count of 13.4, elevated temperature of 100.4, CT scan of the abdomen showed
obstructive nephrolithiasis with a 5 mm obstructing stone in the left ureterovesicular junction.
Required 2 L nasal cannula oxygen to maintain oxygen saturation above 88%
Blood cultures -blood cultures positive with gram negative bacilli -E. coli
Urine culture -pending
IV Zosyn given
Lactic acid pending
Levophed discontinued, patient responded to fluid bolus 500 mL
- Acute hypoxemic respiratory failure: Unresolved
Secondary to sepsis versus COPD exacerbation versus atelectasis
Incentive spirometry
Currently receiving budesonide twice a day and DuoNebs 3 times daily
Trelegy to be resumed at time of discharge
Smoking cessation counseling given
Acapella given
Maintain SpO2 greater than 88%
Prednisone 40 mg for 5 days started
- Postrenal acute kidney injury: Unresolved
Patient presented to the emergency department with a creatinine of 1.8 elevated from baseline of 0.9
Secondary to 5 mm obstructing stone in the left ureterovesicular junction
Trend creatinine
Patient tolerated her left ureteroscopy and left lithotripsy with stent placement on 03/07/2025
Up and out of bed early mobility
Holt discontinued
Creatinine remains elevated at 2.4 on 03/09/2025
-Obstructive nephrolithiasis: Monitoring - improving
CT of the abdomen and pelvis showed a 5 mm obstructing stone in the left ureterovesicular junction with mild hydroureter nephrosis.
Morphine sulfate and hydromorphone given for pain control
IV fluid support
Patient kept n.p.o. prior to procedure
Tamsulosin 0.4 mg
Hold nephrotoxic agents and renally dose medication
Patient tolerated her left ureteroscopy and left lithotripsy with stent placement on 03/07/2025
Holt discontinued
- Thrombocytopenia: Monitoring
Patient had a platelet count of 95 on 03/08/2025, platelets 81 on 03/09/2025
Likely secondary to sepsis/bacteremia
No signs of active bleeding presently
- Essential hypertension: Monitoring
Will continue to follow her blood pressure and trend
- Hypothyroidism:
TSH ordered -patient does not have any hypothyroid medications on their home med list
Imaging:
-Abdomen/pelvis CT conducted on 03/07/2025:
Image quality is mildly degraded by motion artifact.
There is an approximately 7 mm obstructing stone in the proximal left ureter with associated mild left-sided hydronephrosis. There is asymmetric perinephric stranding along the left kidney for which infection cannot be excluded. Recommend
correlation with urinalysis.
The right kidney is mildly atrophic with a 3 mm nonobstructing stone in the inferior pole.
There is mild wall thickening along the ascending colon likely secondary to underdistention although GI follow-up may be considered.
Aortobiiliac endograft with excluded aneurysm sac measuring approximately 3.4 cm. There is possible mild focal prominence of the distal descending thoracic aorta measuring 3.6 cm. Consider follow-up CTA chest for further evaluation.
- Abdominal x-ray conducted on 03/07/2025
Fluoroscopy provided and static images obtained for procedure guidance
-Subtle linear density within the left lower lung, new from previous exams, and likely mild atelectasis.
Anticipated Discharge: > 48 hours
Subjective/Interval History
-
Date of Service: March 09, 2025
Met with patient at the bedside. She states that she is not doing well. She states that she is uncomfortable in her bed and is in pain. When asked where she is in pain she said 'all over.' She is laying completely flat in her bed wheezing. She
inquired about whether she would be able to get out of bed and sit in the chair. I told her that it would be good for her to be up and out of bed as it would help encourage her to void more. She slept slightly better tonight but not well overall.
Patient commented that she feels cold.
Objective Data
-
Labs:
Laboratory Results
03/09/25
04:28
WBC 22.1 H
Hgb 11.9 L
Hct 36.4 L
Plt Count 81 L
Sodium 137
Potassium 4.3
Chloride 117 H
Carbon Dioxide 15 L
BUN 48 H
Creatinine 2.4 H
Glucose 98
Calcium 7.8 L
Total Bilirubin 0.7
AST 47 H
ALT 24
Alkaline Phosphatase 41
Vital Signs:
Vital Signs
Temp Pulse Resp BP Pulse Ox
97.6 F 99 22 110/61 93
03/09/25 03:13 03/09/25 08:00 03/09/25 08:00 03/09/25 08:00 03/09/25 08:04
I&O
03/08/25 03/09/25 03/10/25
06:59 06:59 06:59
Intake Total 4480 / 4605 4110 / 4235 125 / 125
Output Total 2175 / 2175 1300 / 1300
Balance 2305 / 2430 2810 / 2935 125 / 125
Review of Systems
-
History Source: Patient
Constitutional: Reports Fatigue, Sleep Disturbance and Chills
EENT: Reports No Symptoms Reported
Respiratory: Reports Cough and Wheezing
Cardiac: Reports No Symptoms
Abdomen/GI: Reports No Symptoms
Breast: Reports No Symptoms
Genitourinary: Reports No Symptoms
Musculoskeletal: Reports Muscle Pain and Myalgias
Skin: Reports No Symptoms
Neuro: Reports No Symptoms
Endocrine: Reports No Symptoms
Hematologic / Lymphatic: Reports No Symptoms
Physical Exam
-
General: Well Developed, Well Nourished, No Apparent Distress, Chills and Obese
HEENT: Normocephalic, Atraumatic and Moist Mucous Membranes
Respiratory: Wheezes, Rhonchi, Crackles, Non Labored Respirations and Decreased Breath Sounds; Negative Rales
Cardiac: Regular Rhythm and S1/S2
Breast: Deferred by me
GI: Soft, Nontender, Nondistended and Normal Bowel Sounds
Rectal: Deferred by Provider
Musculoskeletal: No Clubbing, No Cyanosis and No Edema
Skin: Warm, Dry and Normal Turgor; Negative Rash, Ulcers or Lesions
Neuro: Awake, Alert, Oriented and AO x 3
Psych: Other (Uncomfortable)
[2025-03-09] MEDS: SODIUM BICARBONATE 1075 MEQ IV ×2 (09:46→18:17)
[2025-03-09] MEDS: NICODERM TRANSDERMAL 21 MG TRANSDERM (09:48)
[2025-03-09] MEDS: FLOMAX 0.4 MG PO (09:49)
[2025-03-09] MEDS: HEPARIN 5000 UNITS SC ×2 (09:49→20:04)
[2025-03-09] MEDS: MUCINEX 600 MG PO ×2 (09:49→20:05)
[2025-03-09] MEDS: DELTASONE 40 MG PO (11:19)
[2025-03-09 12:01] LABS: Glycohemoglobin (HgbA1c) 5.9 % (4.0-5.6)
--- NOTE | 2025-03-09 12:41 | PTCARENOTE ---
Report called to 3W RN Hayde, pt to be transferred up in wheelchair. Pt updated.
--- NOTE | 2025-03-09 14:23 | CM ---
Patient transferred to Room 319-2.
--- NOTE | 2025-03-09 18:06 | W.PN.URO.CBU ---
Today's Communication / Plan
-
per hispitalist
Assessment / Plan
-
sepsis syndrome stone manipulated stented may remove yu home when stable on targeted po abs with stent
Diagnosis
-
Date of Service: March 09, 2025
-
Patient Diagnosis:
Post Op Day:
Patient Diagnosis:
Post Op Day:
Patient Diagnosis:sepsis syndrome to obstructing distal left 5 mm stone
Post Op Day:
Subjective
-
feeling better
Objective
-
Vital Signs
Temp Pulse Resp BP Pulse Ox
98.1 F 90 18 97/56 95
03/09/25 15:10 03/09/25 15:34 03/09/25 15:34 03/09/25 15:10 03/09/25 15:34
Intake and Output
03/08/25 03/09/25 03/10/25
06:59 06:59 06:59
Intake Total 4480 / 4605 4110 / 4235 655 / 655
Output Total 2175 / 2175 1300 / 1300 125 / 125
Balance 2305 / 2430 2810 / 2935 530 / 530
Intake:
Oral fluids 480 / 480 960 / 960 480 / 480
IV fluids (Total) 2500 / 2625 3000 / 3125 125 / 125
Nss 1,000 ml @ 125 mls/hr IV . 2500 / 2625 3000 / 3125 125 / 125
Q8H REYNA Rx#:[id number]
IV piggybacks 1500 / 1500 150 / 150 50 / 50
Output:
Urine, Yu 725 / 725 1300 / 1300
Urine, Voided 1450 / 1450 125 / 125
Other:
Number of approximated MODERATE 1
amounts of urine
Laboratory Results
03/09/25 04:28
03/09/25 04:28
Review of Systems
-
: Frequency and Flank Pain
Physical Exam
-
General - well developed, well nourished, no acute distress
Chest - clear bilaterally
Abdomen - soft, non-tender, positive bowel sounds, no CVAT, no incisional pain or distention
Genitalia - normal
Rectal - normal
Skin - warm & dry with no rash
Neuro - AOx3, no motor deficits
Extremities - no clubbing, no cyanosis, no edema
Incision - clean, dry
Dressing - clean, dry, intact
Care Review
Data Reviewed
Discussed with: Nursing
[2025-03-10] VITALS (7 sets, daily range): BP systolic 127–153; BP diastolic 62–86; O2SAT 91; BMI 35.8
[2025-03-10] MEDS: ZOSYN 50 IV ×2 (02:12→07:57)
[2025-03-10] MEDS: PERCOCET 5/325 1 TABLET PO (03:21)
[2025-03-10] MEDS: SODIUM BICARBONATE 1075 MEQ IV ×3 (03:21→20:26)
[2025-03-10] MEDS: PULMICORT INH (06:23)
[2025-03-10] MEDS: DUONEB INH (06:23)
--- NOTE | 2025-03-10 07:35 | W.PN.HOSP.TC ---
Today's Communication/Plan
-
Leukocytosis continues to improve
Continue IV Zosyn
Awaiting blood culture positive for E. coli�awaiting sensitivities�likely same E. coli with similar sensitivities as the one detected in the urine culture
Urine culture positive for E. coli and susceptibility to Zosyn
Continue to follow creatinine as it improves
Assessment / Plan
Assessment / Plan
Assessment and Plan:
-Sepsis secondary to obstructive nephrolithiasis with bacteremia: Unresolved-improving
On arrival to the emergency department the patient had an elevated blood pressure of 194/101, respirations were 29, patient had leukocytosis with a white blood cell count of 13.4, elevated temperature of 100.4, CT scan of the abdomen showed
obstructive nephrolithiasis with a 5 mm obstructing stone in the left ureterovesicular junction.
Required 2 L nasal cannula oxygen to maintain oxygen saturation above 88%
Blood cultures -blood cultures positive with gram negative bacilli -E. coli
Urine culture -positive for E. coli -sensitive to Zosyn -continue Zosyn
IV Zosyn given
Lactic acid 3.3 on 03/07/2025
Levophed discontinued, patient responded to fluid bolus 500 mL
Leukocytosis improving�white blood cell count at 19.2 on 03/10/2025
- Acute hypoxemic respiratory failure: Unresolved
Secondary to sepsis versus COPD exacerbation versus atelectasis
Incentive spirometry
Currently receiving budesonide twice a day and DuoNebs 3 times daily
Trelegy to be resumed at time of discharge
Smoking cessation counseling given
Acapella given
Maintain SpO2 greater than 88%
Prednisone 40 mg for 5 days started
- Postrenal acute kidney injury: Unresolved
Patient presented to the emergency department with a creatinine of 1.8 elevated from baseline of 0.9
Secondary to 5 mm obstructing stone in the left ureterovesicular junction
Trend creatinine
Patient tolerated her left ureteroscopy and left lithotripsy with stent placement on 03/07/2025
Up and out of bed early mobility
Holt discontinued
Creatinine remains elevated at 2.1 on 03/10/2025 but shows improvement compared to 03/09/2025
-Obstructive nephrolithiasis: Monitoring - improving
CT of the abdomen and pelvis showed a 5 mm obstructing stone in the left ureterovesicular junction with mild hydroureter nephrosis.
Morphine sulfate and hydromorphone given for pain control
IV fluid support
Patient kept n.p.o. prior to procedure
Tamsulosin 0.4 mg
Hold nephrotoxic agents and renally dose medication
Patient tolerated her left ureteroscopy and left lithotripsy with stent placement on 03/07/2025
Holt discontinued
- Thrombocytopenia: Monitoring
Patient had a platelet count of 95 on 03/08/2025, platelets 81 on 03/09/2025
Likely secondary to sepsis/bacteremia
No signs of active bleeding presently
- Essential hypertension: Monitoring
Will continue to follow her blood pressure and trend
- Hypothyroidism:
TSH ordered -patient does not have any hypothyroid medications on their home med list
Imaging:
-Abdomen/pelvis CT conducted on 03/07/2025:
Image quality is mildly degraded by motion artifact.
There is an approximately 7 mm obstructing stone in the proximal left ureter with associated mild left-sided hydronephrosis. There is asymmetric perinephric stranding along the left kidney for which infection cannot be excluded. Recommend
correlation with urinalysis.
The right kidney is mildly atrophic with a 3 mm nonobstructing stone in the inferior pole.
There is mild wall thickening along the ascending colon likely secondary to underdistention although GI follow-up may be considered.
Aortobiiliac endograft with excluded aneurysm sac measuring approximately 3.4 cm. There is possible mild focal prominence of the distal descending thoracic aorta measuring 3.6 cm. Consider follow-up CTA chest for further evaluation.
- Abdominal x-ray conducted on 03/07/2025
Fluoroscopy provided and static images obtained for procedure guidance
-Subtle linear density within the left lower lung, new from previous exams, and likely mild atelectasis.
Anticipated Discharge: 24 - 48 hours
Subjective/Interval History
-
Date of Service: March 10, 2025
Met with patient at the bedside. She appears to be doing much better today and offers no complaints. She is not as hungry as she was yesterday but states that she probably will be hungrier for lunch later on. She refused her Pulmicort and DuoNebs
because she said it does not make her feel good.
Objective Data
-
Labs:
Laboratory Results
03/10/25
07:30
WBC 19.2 H
Hgb 11.9 L
Hct 35.4 L
Plt Count 82 L
Sodium 137
Potassium 4.1
Chloride 113 H
Carbon Dioxide 18 L
BUN 50 H
Creatinine 2.1 H
Glucose 106 H
Calcium 8.4
Total Bilirubin 0.8
AST 35
ALT 28
Alkaline Phosphatase 65
Vital Signs:
Vital Signs
Temp Pulse Resp BP Pulse Ox
98.1 F 104 22 140/75 89
03/10/25 08:13 03/10/25 08:13 03/10/25 08:53 03/10/25 08:13 03/10/25 09:23
I&O
03/09/25 03/10/25 03/11/25
06:59 06:59 06:59
Intake Total 4110 / 4235 995 / 995
Output Total 1300 / 1300 125 / 125
Balance 2810 / 2935 870 / 870
Review of Systems
-
History Source: Patient
All other systems: Reviewed and negative
Constitutional: Reports No Symptoms
EENT: Reports No Symptoms Reported
Respiratory: Reports Wheezing
Cardiac: Reports No Symptoms
Abdomen/GI: Reports No Symptoms
Breast: Reports No Symptoms
Genitourinary: Reports No Symptoms
Musculoskeletal: Reports No Symptoms
Skin: Reports No Symptoms
Neuro: Reports No Symptoms
Endocrine: Reports No Symptoms
Hematologic / Lymphatic: Reports No Symptoms
Physical Exam
-
General: Well Developed, Well Nourished, No Apparent Distress and Comfortable
HEENT: Normocephalic, Atraumatic and Moist Mucous Membranes
Respiratory: Wheezes, Rhonchi, Crackles, Decreased Breath Sounds (Bilaterally at the lung bases) and Other (Prolonged expiratory phase); Negative Rales
Cardiac: Regular Rhythm and S1/S2
Breast: Deferred by me
GI: Soft, Nontender, Nondistended and Normal Bowel Sounds
Musculoskeletal: No Cyanosis and No Edema
Skin: Warm and Dry; Negative Rash, Ulcers or Lesions
Neuro: Awake, Alert, Oriented and AO x 3
Psych: Calm
[2025-03-10] MEDS: MUCINEX 600 MG PO ×2 (07:57→20:26)
[2025-03-10] MEDS: FLOMAX 0.4 MG PO (07:57)
[2025-03-10] MEDS: HEPARIN 5000 UNITS SC ×2 (07:58→20:26)
[2025-03-10] MEDS: DELTASONE 40 MG PO (07:58)
[2025-03-10] MEDS: NICODERM TRANSDERMAL 21 MG TRANSDERM (07:58)
[2025-03-10 08:15] LABS: Hematocrit 35.4 % (37.0-47.0); Hemoglobin 11.9 g/dL (12.0-16.0); Mean Corp Hgb Conc. 33.6 g/dL (33.0-37.0); Mean Corpuscular Volume 97.3 fL (81.0-99.0); Platelet Count 82 10^3/uL (130-400); Red Cell Dist. Width 14.2 % (11.5-14.5)
[2025-03-10 08:18] LABS: ALT (SGPT) 28 U/L (0-35); AST (SGOT) 35 U/L (14-36); Albumin 2.7 g/dl (3.5-5.0); Alkaline Phosphatase 65 U/L (38-126); Blood Urea Nitrogen 50 mg/dl (7-17); Calcium 8.4 mg/dl (8.4-10.2); Carbon Dioxide 18 mmol/L (22-30); Chloride 113 mmol/L (98-107); Estimated Creatinine Clearance 25 ml/min; Glucose 106 mg/dl (70-99); Potassium 4.1 mmol/L (3.5-5.1); Sodium 137 mmol/L (135-145); Total Protein 5.2 g/dl (6.3-8.2); eGFR 23.97
[2025-03-10 09:26] LABS: Nucleated Red Blood Cells % 0 %
[2025-03-10] MEDS: DUONEB 3 ML INH ×3 (11:09→19:19)
--- NOTE | 2025-03-10 13:00 | W.PN.URO.CBU ---
Today's Communication / Plan
-
plan oer hospitalist
Assessment / Plan
-
sepsis syndrome stone manipulated stented may remove yu home when stable on targeted po abs with stent
Diagnosis
-
Date of Service: March 10, 2025
-
Patient Diagnosis:
Post Op Day:
Patient Diagnosis:
Post Op Day:
Patient Diagnosis:
Post Op Day:
Patient Diagnosis:sepsis syndrome to obstructing distal left 5 mm stone
Post Op Day:
Subjective
-
no complaints wants to go home
Objective
-
Vital Signs
Temp Pulse Resp BP Pulse Ox
98.7 F 91 16 137/70 89
03/10/25 12:25 03/10/25 12:25 03/10/25 12:25 03/10/25 12:25 03/10/25 12:25
Intake and Output
03/09/25 03/10/25 03/11/25
06:59 06:59 06:59
Intake Total 4110 / 4235 995 / 995
Output Total 1300 / 1300 125 / 125
Balance 2810 / 2935 870 / 870
Intake:
Oral fluids 960 / 960 720 / 720
IV fluids (Total) 3000 / 3125 125 / 125
Nss 1,000 ml @ 125 mls/hr IV . 3000 / 3125 125 / 125
Q8H REYNA Rx#:[id number]
IV piggybacks 150 / 150 150 / 150
Output:
Urine, Yu 1300 / 1300
Urine, Voided 125 / 125
Other:
Number of approximated MODERATE 1
amounts of urine
Number of approximated LARGE 1
amounts of urine
How many times incontinent 3
SATURATED amount urine
Laboratory Results
03/10/25 07:30
03/10/25 07:30
Review of Systems
-
: Urgency
Physical Exam
-
General - well developed, well nourished, no acute distress
Chest - clear bilaterally
Abdomen - soft, non-tender, positive bowel sounds, no CVAT, no incisional pain or distention
Genitalia - normal
Rectal - normal
Skin - warm & dry with no rash
Neuro - AOx3, no motor deficits
Extremities - no clubbing, no cyanosis, no edema
Incision - clean, dry
Dressing - clean, dry, intact
[2025-03-10] MEDS: PULMICORT 0.5 MG INH (19:19)
[2025-03-10] MEDS: KEFLEX 500 MG PO (20:25)
[2025-03-10] MEDS: MELATONIN 5 MG PO (21:14)
--- NOTE | 2025-03-10 22:33 | W.PN.UPDATE ---
Addendum entered and electronically signed by MARJORIE Yee 03/11/25 07:09:
Attempted to call sister, Hodan Sherman, to update on overnight events, no answer.
Original Note:
Update Note
Progress Note Update
~ 00:45 Received result, troponin 0.571. Patient sleeping, denies and further chest pain. Patient states she sees Dr. Bird Shoemaker, [facility] Tender at [place], unable to tell me about cardiac history. TT safety person Cardiology, Dr. Medina, appreciate his
assistance w/management. Forwarded EKGs. Per Dr. Medina: Repeat EKG and repeat troponin now. Vital signs: BP 124/82, HR 107, Resp 22, O2sat 92% on room air. Ordered ASA 325 mg PO x 1, 81 mg PO daily starting 03/11/2025. Ordered Nitro-paste 1/2 inch.
Transfer to IMU. Call Dr. Medina with repeat EKG and troponin results.
~ Repeat EKG sent for Dr. Medina's review, EKG ok. Second troponin result 0.534, result TT to Dr. Medina. Per Dr. Medina, no other changes at this time provided she remains pain-free. IMU RN aware of plan, she is to notify Dr. Medina/myself if
patient has chest pain.
AM labs drawn, added on Mag.
Per house provider, d/c Heparin, ordered SCD's for DVT prophylaxis, ordered HIT ab w/am labs.
~ 22:30 TT received from RN, patient c/o chest pain. On evaluation, patient stated chest pain rated at 5 out of 10, non radiating, feels like burning. Patient states she knows it is not cardiac. Vital signs: BP 157/89, HR 115, resp 18, 91% on room
air, afebrile 97.4. Ordered serial troponin. EKG ordered.
Asked RN to give PRN Tums to see if symptoms resolve.
[2025-03-10] MEDS: TUMS CHEWABLE TABLET 400 MG PO (22:35)
--- NOTE | 2025-03-10 23:37 | PTCARENOTE ---
Addendum entered by Morenita Lind RN 03/10/25 23:49:
Pt troponin resulted at 0.571, EDUCATION PROGRAM MANAGER notified.
Original Note:
Pt showing sinus tach on tele sustaining 120s. This RN went into pt room seeing her restless, tangled in her blankets trying to find her phone. Pt BETTENCOURT, tachypneic. Pt stated that her chest hurt, grabbing it. EDUCATION PROGRAM MANAGER notified, VS obtained. Temp 97.4, O2
91% RA, HR 115, BP 157/89 RR 22. EDUCATION PROGRAM MANAGER in to see pt. Pt stated that she felt her chest burning and it wasn't her heart. Order in for EKG and troponin. Obtained. Tums administered for pt describing indigestion. Pt now resting comfortably, sleeping, NS
on tele. Will continue to monitor pt.
[2025-03-10 23:46] LABS: Troponin I 0.571 ng/ml
[2025-03-11] VITALS (27 sets, daily range): BP systolic 108–160; BP diastolic 62–93; BMI 36.4
[2025-03-11] MEDS: ASPIRIN 325 MG PO (01:18)
[2025-03-11 01:56] LABS: Hematocrit 36.8 % (37.0-47.0); Hemoglobin 12.4 g/dL (12.0-16.0); Mean Corp Hgb Conc. 33.7 g/dL (33.0-37.0); Mean Corpuscular Volume 95.8 fL (81.0-99.0); Nucleated Red Blood Cells % 0 %; Platelet Count 85 10^3/uL (130-400); Red Cell Dist. Width 14.5 % (11.5-14.5)
[2025-03-11 02:12] LABS: ALT (SGPT) 30 U/L (0-35); AST (SGOT) 28 U/L (14-36); Albumin 2.9 g/dl (3.5-5.0); Alkaline Phosphatase 65 U/L (38-126); Blood Urea Nitrogen 49 mg/dl (7-17); Calcium 8.9 mg/dl (8.4-10.2); Carbon Dioxide 19 mmol/L (22-30); Chloride 113 mmol/L (98-107); Estimated Creatinine Clearance 25 ml/min; Glucose 128 mg/dl (70-99); Magnesium 2.1 mg/dl (1.6-2.3); Potassium 4.1 mmol/L (3.5-5.1); Sodium 138 mmol/L (135-145); Total Protein 5.5 g/dl (6.3-8.2); eGFR 23.97
[2025-03-11] MEDS: NITRO-BID 0.5 INCH TOPICAL ×4 (02:29→17:31)
[2025-03-11 02:32] LABS: Troponin I 0.534 ng/ml
--- NOTE | 2025-03-11 02:47 | PTCARENOTE ---
Rec'd pt as transfer for higher level of care. Upon arrival, pt denies complaints, reports no chest pain. Nitro paste ordered, this RN confirmed that provider still wants medication administered although pt denies pain, dose given per MAR. VSS at
this time. IVF intact through R AC IV. Pt presents with harsh cough, not producing sputum at this time. Call sandra education provided, sandra within reach. Care ongoing.
[2025-03-11] MEDS: SODIUM BICARBONATE 1075 MEQ IV ×3 (03:59→20:52)
[2025-03-11 05:37] LABS: Troponin I 0.551 ng/ml
[2025-03-11] MEDS: PULMICORT INH (07:28)
[2025-03-11] MEDS: DUONEB INH ×2 (07:28→11:32)
--- NOTE | 2025-03-11 07:52 | CON.CAR ---
Consultation
Consultation Request
Date/Time Consultation Requested: 03/11/2025
Date/Time Consultation Performed: 03/11/2025
Requesting Provider: Hospitalist
Performing Provider: Dr. Medina
Reason for Consultation: Chest discomfort
Medical History
-
History of Present Illness:
Primary management intern Dr. Bird Shoemaker
74-year-old woman with history of COPD hypertension, hypothyroidism and smoking and kidney stones patient admitted with sepsis/E. coli bacteremia and underwent left uteroscopy and laser lithotripsy and stent placement by urology. Patient was in
the ICU and is subsequently transferred out. Hospital course also notable for DENNY with creatinine currently 2.1 and patient's developed thrombocytopenia with platelet count 82. I was consulted due to an episode of chest discomfort which occurred
last night. Patient states that she gets chest discomfort after she gets her breathing treatments it will last for about 10 minutes. Patient also states that she has a lot of coughing although she denies having chest pain with cough at 1 point it
sound like she was having chest discomfort with a deep breath. Due to the episode of chest discomfort she had a troponin which was 0.5. This prompted consultation. Patient's had no further chest discomfort. Although the chest discomfort was
initially reported as something new last night patient states that she has had other episodes of chest discomfort and they only occur after she has a breathing treatment. No episodes of chest discomfort at home. She sees a management intern but heart
details regarding her prior cardiac history are not clear. She thinks she was told she might of had a silent heart attack in the past. No prior history of cardiac catheterization or coronary stenting per her report
ECG 03/07/2025 normal sinus rhythm.
ECG 03/10/2025 at 2227 sinus tachycardia with some upsloping ST depression V3 through V6 as well as lead II and aVF cannot exclude prior anteroseptal KS..
ECG 03/11/2025 at 1:29 AM sinus rhythm small septal R waves are noted in V1 and V2 does not meet criteria for prior septal KS
ECG 03/11/2025 at 4:33 AM sinus rhythm with no acute change. Late transition of R wave
Past Medical History
Past Medical History: Other (COPD, hypothyroidism, kidney stones, history of smoking)
Social History
Tobacco: Other (History of smoking)
Family History
Family History: Other (Negative for CAD)
Allergies / Home Medications
Allergy/AdvReac Type Severity Reaction Status Date / Time
No Known Allergies Allergy Verified 03/07/25 02:00
�Medication �Instructions �Recorded �Confirmed �Type
albuterol sulfate 90 mcg/actuation 2 puff inhalation R QID #0 puffs 09/03/14 Rx
aerosol inhaler
ondansetron 4 mg disintegrating 4 mg PO TIDPRN PRN nausea/vomiting 03/17/17 Rx
tablet #12 tabs
oxycodone-acetaminophen 5 mg-325 1 tab PO Q6HPRN PRN pain #15 tabs 03/17/17 Rx
mg tablet
tamsulosin 0.4 mg capsule 0.4 mg PO DAILY #5 caps 03/17/17 Rx
Review of Systems
-
All other systems: Negative unless noted
Physical Exam
Vital Signs
Temp Pulse Resp BP Pulse Ox
98.2 F 96 24 115/91 91
03/11/25 02:22 03/11/25 06:30 03/11/25 06:30 03/11/25 06:30 03/11/25 06:30
Lab Results
03/11/25 01:46
03/11/25 01:45
Troponin I 0.551 ng/ml H* 03/11/25 04:32
Physical Exam
General: Well Developed and No Apparent Distress
HEENT: Normocephalic
Respiratory: Wheezes (Diffuse wheezes bilaterally. No rhonchi or rales)
Cardiac: Regular Rhythm (No murmur rub or gallop)
GI: Non Tender, Non Distended and Other (No paraspinal megaly no mass)
Musculoskeletal: No Clubbing, No Cyanosis and No Edema
Skin: Warm, Dry and Rash (No rash)
Neuro: Awake, Alert and Oriented
Hematologic/Lymphatic: No Lymphadenopathy
Psych: Calm (Cooperative)
Impression / Plan
-
.
Chest discomfort. Patient had some chest discomfort there were some subtle ST changes which raise question for coronary ischemia and first troponin was mildly elevated at 0.5 but despite episode of chest discomfort troponins to have not rise then
up stated the same level. More challenging to assess troponins and patient with DENNY. Patient also mostly just notices chest discomfort related to breathing treatments and has since been pain-free. Patient has DENNY with creatinine of 2.1. And also
has declining platelets. Currently would recommend medical therapy as she continues to recover from sepsis and DENNY. In addition we will obtain records from her prior management intern.
If patient has issues with recurrent chest discomfort and unstable symptoms we would could consider cardiac catheterization.
- Continue aspirin 81 mg a
- Continue Nitropaste
- Obtain records from previous management intern
- Echocardiogram
- Heparin not added with the patient being pain-free, declining platelets and HIT panel pending.
.
Sepsis/E. coli bacteremia
- Improved
- Treated for kidney stones
- Remains on antibiotics
- Treatment directed by primary team and urology
.
Thrombocytopenia. Suspected secondary to sepsis.216 on admission then dropped to 95 in first 24 hours and is now at 85.
.
COPD. Patient with wheezes on exam continue treatment directed by primary team
.
DENNY.1.8 on admission unclear what baseline truly is. Creatinine went up to 2.5 and is now down to 2.1
Data Reviewed
-
EKG: Tracing Personally Visualized and interpreted, Report Reviewed by me and Other ( )
Radiology: Report Reviewed by me
Medical Tests (Nuc Med, Echo etc): Report Reviewed by me
Labs: Labs Reviewed by me
--- NOTE | 2025-03-11 08:00 | W.PN.HOSP.TC ---
Today's Communication/Plan
-
continuing aspirin 81 mg
continue Nitropaste
Continue Keflex 500 mg p.o. twice daily
Echocardiogram scheduled for the morning
Incentive spirometry
Continue Pulmicort, DuoNeb, and Mucinex
Continue nicotine patch
Assessment / Plan
Assessment / Plan
Assessment and Plan:
-Sepsis secondary to obstructive nephrolithiasis with bacteremia: Unresolved-improving
On arrival to the emergency department the patient had an elevated blood pressure of 194/101, respirations were 29, patient had leukocytosis with a white blood cell count of 13.4, elevated temperature of 100.4, CT scan of the abdomen showed
obstructive nephrolithiasis with a 5 mm obstructing stone in the left ureterovesicular junction.
Required 2 L nasal cannula oxygen to maintain oxygen saturation above 88%
Blood cultures -blood cultures positive with gram negative bacilli -E. coli
Urine culture -positive for E. coli -sensitive to Zosyn -continue Zosyn
IV Zosyn given
Lactic acid 3.3 on 03/07/2025
Levophed discontinued, patient responded to fluid bolus 500 mL
Leukocytosis improving�white blood cell count at 13.0 on 03/11/2025
- Acute hypoxemic respiratory failure: Improving�close to baseline
Secondary to sepsis versus COPD exacerbation versus atelectasis
Incentive spirometry
Currently receiving budesonide twice a day and DuoNebs 3 times daily
Trelegy to be resumed at time of discharge
Smoking cessation counseling given
Acapella given
Maintain SpO2 greater than 88%
Prednisone 40 mg for 5 days started
- Postrenal acute kidney injury on CKD stage IV: Unresolved
Patient presented to the emergency department with a creatinine of 1.8 elevated from baseline of 0.9
Secondary to 5 mm obstructing stone in the left ureterovesicular junction
Trend creatinine
Patient tolerated her left ureteroscopy and left lithotripsy with stent placement on 03/07/2025
Up and out of bed early mobility
Holt discontinued
Creatinine remains elevated at 2.1 -continue to trend -this may be the patient's baseline
eGFR is been trended throughout this hospital stay and the patient has been below 30 persistently throughout her hospital admission. This indicates CKD stage IV in the setting of postrenal acute kidney injury.
-Chest discomfort: Monitoring
Patient had an episode of chest discomfort on the evening of 03/10/2025 -cardiology consulted
an ECG was conducted and troponins were drawn
ECG showed normal sinus rhythm, low voltage QRS, could not rule out anterior infarct which was seen on prior ECG
Troponins were elevated but is difficult to assess troponins in the setting of DENNY on CKD.
Appreciate cardiology recommendations�they recommend continuing aspirin 81 mg, continue Nitropaste, and they have decided against adding heparin for the time being
Echocardiogram scheduled for the morning
-Obstructive nephrolithiasis: Monitoring - improving
CT of the abdomen and pelvis showed a 5 mm obstructing stone in the left ureterovesicular junction with mild hydroureter nephrosis.
Morphine sulfate and hydromorphone given for pain control
IV fluid support
Patient kept n.p.o. prior to procedure
Tamsulosin 0.4 mg
Hold nephrotoxic agents and renally dose medication
Patient tolerated her left ureteroscopy and left lithotripsy with stent placement on 03/07/2025
Holt discontinued
- Thrombocytopenia: Monitoring
Patient had a platelet count of 95 on 03/08/2025, platelets 81 on 03/09/2025, platelets stable at 85 on 03/11/2025
Likely secondary to sepsis/bacteremia
No signs of active bleeding presently
- Essential hypertension: Monitoring
Will continue to follow her blood pressure and trend
- Hypothyroidism:
TSH ordered -patient does not have any hypothyroid medications on their home med list
-Nicotine dependence:
Patient smokes approximately 1 pack a day
Tobacco cessation education given at the bedside
Continue nicotine patches
Full CODE STATUS
DVT prophylaxis subcu heparin
Regular diet
Imaging:
-Abdomen/pelvis CT conducted on 03/07/2025:
Image quality is mildly degraded by motion artifact.
There is an approximately 7 mm obstructing stone in the proximal left ureter with associated mild left-sided hydronephrosis. There is asymmetric perinephric stranding along the left kidney for which infection cannot be excluded. Recommend
correlation with urinalysis.
The right kidney is mildly atrophic with a 3 mm nonobstructing stone in the inferior pole.
There is mild wall thickening along the ascending colon likely secondary to underdistention although GI follow-up may be considered.
Aortobiiliac endograft with excluded aneurysm sac measuring approximately 3.4 cm. There is possible mild focal prominence of the distal descending thoracic aorta measuring 3.6 cm. Consider follow-up CTA chest for further evaluation.
- Abdominal x-ray conducted on 03/07/2025
Fluoroscopy provided and static images obtained for procedure guidance
-Subtle linear density within the left lower lung, new from previous exams, and likely mild atelectasis.
Anticipated Discharge: 24 - 48 hours
Subjective/Interval History
-
Date of Service: March 11, 2025
Met with patient at the bedside. She reports that she feels the same as she did yesterday and had interrupted sleep. She had a moment of chest pain over the evening which prompted an ECG study and an upgrade to the IMU. She is not in any kind of
pain currently but does complain of having a cough when she breathes in deeply. She is not as agitated as she was prior to receiving her nicotine patches and that is an improvement from the last few days. The patient is aware that she is scheduled
for an upcoming echo. Patient refused her DuoNebs and Pulmicort this morning stating that it makes her cough more things and makes her uncomfortable. She said that she would try the treatment after her echocardiogram later in the morning.
Objective Data
-
Labs:
Laboratory Results
03/11/25 03/11/25
01:45 01:46
WBC 13.0 H
Hgb 12.4
Hct 36.8 L
Plt Count 85 L
Sodium 138
Potassium 4.1
Chloride 113 H
Carbon Dioxide 19 L
BUN 49 H
Creatinine 2.1 H
Glucose 128 H
Calcium 8.9
Total Bilirubin 0.8
AST 28
ALT 30
Alkaline Phosphatase 65
Vital Signs:
Vital Signs
Temp Pulse Resp BP Pulse Ox
98.2 F 96 24 115/91 91
03/11/25 02:22 03/11/25 06:30 03/11/25 06:30 03/11/25 06:30 03/11/25 06:30
I&O
03/10/25 03/11/25 03/12/25
06:59 06:59 06:59
Intake Total 995 / 995 600 / 600
Output Total 125 / 125
Balance 870 / 870 600 / 600
Review of Systems
-
History Source: Patient
Constitutional: Reports No Symptoms
EENT: Reports No Symptoms Reported
Respiratory: Reports Cough
Cardiac: Reports No Symptoms
Abdomen/GI: Reports No Symptoms
Breast: Reports No Symptoms
Genitourinary: Reports No Symptoms
Musculoskeletal: Reports No Symptoms
Skin: Reports No Symptoms
Neuro: Reports No Symptoms
Physical Exam
-
General: Well Developed, Well Nourished, No Apparent Distress and Comfortable
HEENT: Normocephalic, Atraumatic and Moist Mucous Membranes
Respiratory: Rhonchi, Crackles, Decreased Breath Sounds (Bilaterally at the lung bases) and Other (Prolonged expiratory phase)
Cardiac: Regular Rhythm and S1/S2
Breast: Deferred by me
GI: Soft, Nontender, Nondistended and Normal Bowel Sounds
Skin: Warm and Dry; Negative Rash, Ulcers or Lesions
Neuro: Awake, Alert, Oriented and AO x 3
Psych: Calm
[2025-03-11] MEDS: DELTASONE 40 MG PO (08:35)
[2025-03-11] MEDS: NICODERM TRANSDERMAL 21 MG TRANSDERM (08:35)
[2025-03-11] MEDS: FLOMAX 0.4 MG PO (08:35)
[2025-03-11] MEDS: LOW STRENGTH ASPIRIN 81 MG PO (08:35)
[2025-03-11] MEDS: MUCINEX 600 MG PO ×2 (08:35→19:47)
[2025-03-11] MEDS: KEFLEX 500 MG PO ×2 (08:35→19:47)
[2025-03-11 11:12] LABS: Troponin I 0.501 ng/ml
--- NOTE | 2025-03-11 11:22 | PTCARENOTE ---
Dr. Medina made aware that trop is 0.501 and is trending down. Patient denies chest pain. Per MD, redraw trop again in AM. Verbal order placed. Care ongoing.
--- NOTE | 2025-03-11 14:40 | PTCARENOTE ---
Patient put on 2L NC due to SpO2 being 88-89% on RA. SpO2 93% on 2L NC. Care ongoing.
--- NOTE | 2025-03-11 15:06 | CM ---
CM reviewed chart, patient seen bedside with friend, discussed therapy recommendation of SNF upon discharge. Patient provided with list of local SNFS near [facility], referrals previously placed with a few accepting facilities. Patient will
require auth for SNF prior to discharge. Patient reports she does not wear O2 at home. CM will continue to follow for all discharge planning needs.
Plan; SNF (near [facility]), will require auth.
--- NOTE | 2025-03-11 15:15 | PTCARENOTE ---
Patient AOx3 and is forgetful. Bed alarm on and audible. NSR on monitor. Denies chest pain. Nitro paste changed Q6hrs per order. On 2L NC with SpO2 greater than 92%. Frequent non-productive cough. Assist x1 to bedside commode. IVF running per order.
Call flores within reach, bed in lowest position, and bed of wheels locked.
[2025-03-11] MEDS: MELATONIN 5 MG PO (19:52)
[2025-03-12] VITALS (12 sets, daily range): BP systolic 138–177; BP diastolic 71–94; PULSE 78; O2SAT 92; BMI 37.1
[2025-03-12] MEDS: NITRO-BID 0.5 INCH TOPICAL ×3 (00:34→12:08)
--- NOTE | 2025-03-12 00:40 | PTCARENOTE ---
Caring for pt overnight. aaox3, forgetful, known garbled speech. NSR on monitor. Remains on 2LNC. IVF running. Denies having CP but when pt is SOB she holds her L chest. Pt gets very orthopneic & SOB with any movement, audible wheeze, coarse. BA for
safety.
[2025-03-12 05:01] LABS: Hematocrit 37.3 % (37.0-47.0); Hemoglobin 12.7 g/dL (12.0-16.0); Mean Corp Hgb Conc. 34.0 g/dL (33.0-37.0); Mean Corpuscular Volume 97.6 fL (81.0-99.0); Nucleated Red Blood Cells % 0 %; Platelet Count 106 10^3/uL (130-400); Red Cell Dist. Width 14.2 % (11.5-14.5)
[2025-03-12 05:21] LABS: ALT (SGPT) 26 U/L (0-35); AST (SGOT) 21 U/L (14-36); Albumin 2.7 g/dl (3.5-5.0); Alkaline Phosphatase 52 U/L (38-126); Blood Urea Nitrogen 51 mg/dl (7-17); Calcium 8.1 mg/dl (8.4-10.2); Carbon Dioxide 24 mmol/L (22-30); Chloride 111 mmol/L (98-107); Estimated Creatinine Clearance 30 ml/min; Glucose 103 mg/dl (70-99); Potassium 4.1 mmol/L (3.5-5.1); Sodium 138 mmol/L (135-145); Total Protein 5.1 g/dl (6.3-8.2); eGFR 28.84
[2025-03-12 05:33] LABS: Troponin I 0.340 ng/ml
--- NOTE | 2025-03-12 07:34 | W.PN.HOSP.TC ---
Today's Communication/Plan
-
Patient's leukocytosis has resolved and the patient feels close to her baseline.
Thrombocytopenia improving
Patient requires 2 L nasal cannula oxygen to maintain SpO2 greater than 88% -chest x-ray ordered
Continue antibiotics
Assessment / Plan
Assessment / Plan
Assessment and Plan:
-Sepsis secondary to obstructive nephrolithiasis with bacteremia: Resolved
On arrival to the emergency department the patient had an elevated blood pressure of 194/101, respirations were 29, patient had leukocytosis with a white blood cell count of 13.4, elevated temperature of 100.4, CT scan of the abdomen showed
obstructive nephrolithiasis with a 5 mm obstructing stone in the left ureterovesicular junction.
Blood cultures -blood cultures positive with gram negative bacilli -E. coli
Urine culture -positive for E. coli -sensitive to Zosyn -continue Zosyn
IV Zosyn given
Lactic acid 3.3 on 03/07/2025
Levophed discontinued, patient responded to fluid bolus 500 mL
Leukocytosis resolved on 03/12/2025 with a white blood cell count of 7.3
- Acute hypoxemic respiratory failure: Improving�close to baseline
Secondary to sepsis versus COPD exacerbation versus atelectasis
Incentive spirometry
Currently receiving budesonide twice a day and DuoNebs 3 times daily
Trelegy to be resumed at time of discharge
Smoking cessation counseling given
Acapella given
Maintain SpO2 greater than 88%
Again requires 2 L nasal cannula oxygen to maintain oxygen saturation above 88%�03/12/2025
Prednisone 40 mg for 5 days started
CXR ordered on 03/12/25
- Postrenal acute kidney injury on CKD stage IV: Unresolved- Improving
Patient presented to the emergency department with a creatinine of 1.8 elevated from baseline of 0.9
Secondary to 5 mm obstructing stone in the left ureterovesicular junction
Trend creatinine
Patient tolerated her left ureteroscopy and left lithotripsy with stent placement on 03/07/2025
Up and out of bed early mobility
Holt discontinued
Creatinine remains elevated at 1.8 -continue to trend
eGFR is been trended throughout this hospital stay and the patient has been below 30 persistently throughout her hospital admission. This indicates CKD stage IV in the setting of postrenal acute kidney injury.
-Chest discomfort: Monitoring
Patient had an episode of chest discomfort on the evening of 03/10/2025 -cardiology consulted
an ECG was conducted and troponins were drawn- trending down on 03/12/2025 with 0.34 troponin
ECG showed normal sinus rhythm, low voltage QRS, could not rule out anterior infarct which was seen on prior ECG
Troponins were elevated but is difficult to assess troponins in the setting of DENYN on CKD.
Appreciate cardiology recommendations�they recommend continuing aspirin 81 mg, continue Nitropaste, and they have decided against adding heparin for the time being
Echocardiogram scheduled for the morning
-Obstructive nephrolithiasis: Monitoring - improving
CT of the abdomen and pelvis showed a 5 mm obstructing stone in the left ureterovesicular junction with mild hydroureter nephrosis.
Morphine sulfate and hydromorphone given for pain control
IV fluid support
Patient kept n.p.o. prior to procedure
Tamsulosin 0.4 mg
Hold nephrotoxic agents and renally dose medication
Patient tolerated her left ureteroscopy and left lithotripsy with stent placement on 03/07/2025
Holt discontinued
- Thrombocytopenia: Monitoring�improving
Patient had a platelet count of 95 on 03/08/2025, platelets 81 on 03/09/2025, platelets stable at 85 on 03/11/2025, platelets increased on 03/12/2025 with a value of 106
Likely secondary to sepsis/bacteremia
No signs of active bleeding presently
- Essential hypertension: Monitoring
Will continue to follow her blood pressure and trend
- Hypothyroidism:
TSH ordered -patient does not have any hypothyroid medications on their home med list
-Nicotine dependence:
Patient smokes approximately 1 pack a day
Tobacco cessation education given at the bedside
Continue nicotine patches
Full CODE STATUS
DVT prophylaxis subcu heparin
Regular diet
Imaging:
-Abdomen/pelvis CT conducted on 03/07/2025:
Image quality is mildly degraded by motion artifact.
There is an approximately 7 mm obstructing stone in the proximal left ureter with associated mild left-sided hydronephrosis. There is asymmetric perinephric stranding along the left kidney for which infection cannot be excluded. Recommend
correlation with urinalysis.
The right kidney is mildly atrophic with a 3 mm nonobstructing stone in the inferior pole.
There is mild wall thickening along the ascending colon likely secondary to underdistention although GI follow-up may be considered.
Aortobiiliac endograft with excluded aneurysm sac measuring approximately 3.4 cm. There is possible mild focal prominence of the distal descending thoracic aorta measuring 3.6 cm. Consider follow-up CTA chest for further evaluation.
- Abdominal x-ray conducted on 03/07/2025
Fluoroscopy provided and static images obtained for procedure guidance
-Subtle linear density within the left lower lung, new from previous exams, and likely mild atelectasis.
Anticipated Discharge: 24 - 48 hours
Subjective/Interval History
-
Date of Service: March 12, 2025
Met with patient at the bedside. She states that she is doing much better today and her appetite is completely back to normal. She inquires about when she is going to be discharged and hopes that it is in the near future. Answered questions
regarding renal function. She stated that her significant other will be joining her later on in the afternoon to spend time with her and she looks forward to that.
Objective Data
-
Labs:
Laboratory Results
03/12/25
04:29
WBC 7.3
Hgb 12.7
Hct 37.3
Plt Count 106 L D
Sodium 138
Potassium 4.1
Chloride 111 H
Carbon Dioxide 24
BUN 51 H
Creatinine 1.8 H
Glucose 103 H
Calcium 8.1 L
Total Bilirubin 0.7
AST 21
ALT 26
Alkaline Phosphatase 52
Vital Signs:
Vital Signs
Temp Pulse Resp BP Pulse Ox
97.4 F 76 19 166/83 97
03/12/25 03:31 03/12/25 06:00 03/12/25 06:00 03/12/25 06:00 03/12/25 06:00
I&O
03/11/25 03/12/25 03/13/25
06:59 06:59 06:59
Intake Total 600 / 600 2160 / 2160
Balance 600 / 600 2160 / 2160
Review of Systems
-
History Source: Patient
Constitutional: Reports No Symptoms
EENT: Reports No Symptoms Reported
Respiratory: Reports No Symptoms
Cardiac: Reports No Symptoms
Abdomen/GI: Reports No Symptoms
Breast: Reports No Symptoms
Genitourinary: Reports No Symptoms
Musculoskeletal: Reports No Symptoms
Skin: Reports No Symptoms
Neuro: Reports No Symptoms
Endocrine: Reports No Symptoms
Hematologic / Lymphatic: Reports No Symptoms
Physical Exam
-
General: Well Developed, Well Nourished, No Apparent Distress and Comfortable
HEENT: Normocephalic, Atraumatic and Moist Mucous Membranes
Respiratory: Clear to Auscultation; Negative Wheezes, Rales, Rhonchi or Crackles
Cardiac: Regular Rhythm and S1/S2
Breast: Deferred by me
GI: Soft, Nontender, Nondistended and Normal Bowel Sounds
Rectal: Deferred by Provider
Musculoskeletal: No Clubbing, No Cyanosis and No Edema
Skin: Warm and Dry
Neuro: Awake, Alert, Oriented and AO x 3
Psych: Calm
[2025-03-12] MEDS: FLOMAX 0.4 MG PO (07:41)
[2025-03-12] MEDS: KEFLEX 500 MG PO ×2 (07:41→20:52)
[2025-03-12] MEDS: NICODERM TRANSDERMAL 21 MG TRANSDERM (07:41)
[2025-03-12] MEDS: LOW STRENGTH ASPIRIN 81 MG PO (07:41)
[2025-03-12] MEDS: DELTASONE 40 MG PO (07:41)
[2025-03-12] MEDS: MUCINEX 600 MG PO ×2 (07:41→20:52)
[2025-03-12] MEDS: SODIUM BICARBONATE 1075 MEQ IV (07:42)
--- NOTE | 2025-03-12 09:01 | CM ---
Addendum entered by Mei Gutierrez RN 03/12/25 16:37:
PT/OT 03/12 recommend skilled rehab.
Met with patient and spoke with her sister Hodan; both are aware that patient is setup for [facility] tomorrow by ambulance transport 2:30pm. IMM completed.
Plan [facility] tomorrow by ambulance.
Original Note:
Patient with dx Sepsis, Acute hypoxemic respiratory failure. O2 2L. CXR today. Receiving PO Abx. PT/OT Re-evals pending.
Spoke with patient & her partner Elena who agree with discharge tomorrow to [facility] by ambulance. Patient and Elena say that patient's sister Hodan would agree with the plan.
Phone calls x2 to Hodan Sherman, patient's sister; phone rings however does not have voicemail- unable to leave message.
Spoke with Gabe Weller [facility] (ph [phone] x [phone]); they are able to accept the patient tomorrow. Auth info provided. Waiting for phone for report/fax and confirmed time that they can accept tomorrow. [facility] tomorrow is [place]
ph [phone].
Request for [facility] auth via [employer]: Certification Number [id number].
Plan follow up PT/OT Re-evals today.
Plan [facility] tomorrow by ambulance.
[2025-03-12] MEDS: ROBITUSSIN 200 MG PO (10:01)
--- NOTE | 2025-03-12 11:12 | W.PN.URO.CBU ---
Today's Communication / Plan
-
per cardiology
Assessment / Plan
-
sepsis syndrome stone manipulated stented may remove yu home when stable on targeted po abs with stent
Diagnosis
-
Date of Service: March 12, 2025
-
Patient Diagnosis:
Post Op Day:
Patient Diagnosis:
Post Op Day:
Patient Diagnosis:
Post Op Day:
Patient Diagnosis:
Post Op Day:
Patient Diagnosis:sepsis syndrome to obstructing proximax left 5 mm stone lasered to place stent stone in left renal pelvis
Post Op Day:
Subjective
-
no gu sxs
Objective
-
Vital Signs
Temp Pulse Resp BP Pulse Ox
97.8 F 76 19 166/83 92
03/12/25 07:42 03/12/25 06:00 03/12/25 06:00 03/12/25 06:00 03/12/25 08:00
Intake and Output
03/11/25 03/12/25 03/13/25
06:59 06:59 06:59
Intake Total 600 / 600 2160 / 2160
Balance 600 / 600 2160 / 2160
Intake:
Oral fluids 600 / 600 660 / 660
IV fluids (Total) 1500 / 1500
Other:
Number of approximated SMALL 1
amounts of urine
Number of approximated MODERATE 2 2
amounts of urine
Number of approximated LARGE 1 1
amounts of urine
How many times incontinent 1
MODERATE amount urine
Laboratory Results
03/12/25 04:29
03/12/25 04:29
Review of Systems
-
: Frequency and Urgency
Physical Exam
-
General - well developed, well nourished, no acute distress
Chest - clear bilaterally
Abdomen - soft, non-tender, positive bowel sounds, no CVAT, no incisional pain or distention
Genitalia - normal
Rectal - normal
Skin - warm & dry with no rash
Neuro - AOx3, no motor deficits
Extremities - no clubbing, no cyanosis, no edema
Incision - clean, dry
Dressing - clean, dry, intact
Care Review
Data Reviewed
Discussed with: Nursing
--- NOTE | 2025-03-12 11:52 | W.PN.CD ---
Today's Communication / Plan
-
- Etiology of chest pain is unclear, but no true evidence of ACS.
- Minimal troponin elevation likely acute nonischemic myocardial injury secondary to sepsis and CKD.
- Echocardiogram yesterday with LVEF of 55-60%, normal regional wall motion and no significant valvular disease.
- Patient can follow-up with her primary Filtration Plant Operator as an outpatient; stress test as an outpatient is reasonable, especially if she has recurrent chest pain at some point.
- No further cardiac recommendations at this time.
Impression / Plan
-
Chest discomfort:
- Etiology of chest pain is unclear, but no true evidence of ACS.
- Minimal troponin elevation likely acute nonischemic myocardial injury secondary to sepsis and CKD.
- Continue aspirin 81 mg
- Echocardiogram yesterday with LVEF of 55-60%, normal regional wall motion and no significant valvular disease.
- Patient can follow-up with her primary Filtration Plant Operator as an outpatient; stress test as an outpatient is reasonable, especially if she has recurrent chest pain at some point.
.
Sepsis/E. coli bacteremia
- Treated for kidney stones
- Improving with antibiotics
- Continue treatment directed by primary team and Urology.
.
Thrombocytopenia.
- Suspected secondary to sepsis.216 on admission then dropped to 95 in first 24 hours.
- Improving; 106 today.
.
COPD. Management as per primary team.
.
DENNY.1.8 on admission unclear what baseline truly is. Creatinine went up to 2.5 and is now down to 2.1.
- Management as per primary team.
Physical Exam
Vital Signs/Labs
Vital Signs
Temp Pulse Resp BP Pulse Ox
97.8 F 76 19 166/83 92
03/12/25 07:42 03/12/25 06:00 03/12/25 06:00 03/12/25 06:00 03/12/25 08:00
03/11/25 03/12/25 03/13/25
06:59 06:59 06:59
Actual Weight 96 kg 97.9 kg
03/12/25 04:29
03/12/25 04:29
Magnesium 2.1 mg/dl (1.6-2.3) 03/11/25 01:45
TSH 0.42 uIU/ml (0.47-4.68) L 03/08/25 04:43
LAB Results
03/10/25 03/11/25 03/11/25
22:55 01:28 04:32
Troponin I 0.571 H* 0.534 H* 0.551 H*
03/11/25 03/12/25
10:31 04:29
Troponin I 0.501 H* 0.340 H*
Physical Exam
Constitutional: No acute distress and Comfortable
EENT: Anicteric
Cardiovascular: Rhythm & rate is regular, Systolic murmur absent, Pedal edema present (trace) and S1S2 is normal
Respiratory: Respiratory effort normal and Rhonchi Present
GI: Soft
Neuro/Psych: AO x 3
Other: Skin (Warm, dry)
Data Reviewed
-
Date of Service: March 12, 2025
EKG: Tracing Personally Visualized and interpreted (Telemetry: Sinus rhythm)
Echo: Tracing Personally Visualized and interpreted (LVEF of 55-60%, normal regional wall motion and no significant valvular disease.)
Medical Tests (PFT, Pathology etc): Discussed with Patient
Labs: Labs Reviewed by me
--- NOTE | 2025-03-12 11:57 | PTCARENOTE ---
Patient AOx3 and is forgetful. Bed alarm and chair alarm on and audible. NSR on monitor. Denies chest pain. Nitro paste changed Q6hrs per order. On 2L NC with SpO2 greater than 92%. Attempted to wean oxygen, but SpO2 dropped below 88%. Frequent
non-productive cough. PRN cough medicine given per order. Assist x2 with RW when OOB. Call flores within reach, bed in lowest position, and bed of wheels locked.
[2025-03-12] MEDS: HEPARIN 5000 UNITS SC ×2 (12:08→20:52)
--- NOTE | 2025-03-12 12:09 | PTCARENOTE ---
Confirmed with resident Dr. Schwartz and attending BILLY Ji to give SQ heparin with patients platelets being low. Care ongoing.
--- NOTE | 2025-03-12 12:43 | PTCARENOTE ---
Report given to Minda on 4W. Patient transferred via stretcher. Patient belongings sent with patient.
[2025-03-12] MEDS: MELATONIN 5 MG PO (20:52)
[2025-03-13] MEDS: HEPARIN 5000 UNITS SC ×2 (05:16→11:48)
[2025-03-13 06:00] VITALS: BMI 37.1
[2025-03-13 07:00] VITALS: BP 145/84
[2025-03-13 07:49] LABS: Hematocrit 38.8 % (37.0-47.0); Hemoglobin 12.9 g/dL (12.0-16.0); Mean Corp Hgb Conc. 33.2 g/dL (33.0-37.0); Mean Corpuscular Volume 99.0 fL (81.0-99.0); Platelet Count 141 10^3/uL (130-400); Red Cell Dist. Width 14.2 % (11.5-14.5)
[2025-03-13] MEDS: KEFLEX 500 MG PO (07:49)
[2025-03-13] MEDS: FLOMAX 0.4 MG PO (07:49)
[2025-03-13] MEDS: MUCINEX 600 MG PO (07:49)
[2025-03-13] MEDS: NICODERM TRANSDERMAL 21 MG TRANSDERM (07:49)
[2025-03-13] MEDS: LOW STRENGTH ASPIRIN 81 MG PO (07:49)
[2025-03-13] MEDS: DELTASONE 40 MG PO (07:50)
[2025-03-13 08:11] LABS: ALT (SGPT) 24 U/L (0-35); AST (SGOT) 24 U/L (14-36); Albumin 2.8 g/dl (3.5-5.0); Alkaline Phosphatase 44 U/L (38-126); Blood Urea Nitrogen 55 mg/dl (7-17); Calcium 8.2 mg/dl (8.4-10.2); Carbon Dioxide 24 mmol/L (22-30); Chloride 111 mmol/L (98-107); Estimated Creatinine Clearance 32 ml/min; Glucose 86 mg/dl (70-99); Potassium 4.6 mmol/L (3.5-5.1); Sodium 136 mmol/L (135-145); Total Protein 5.4 g/dl (6.3-8.2); eGFR 30.89
--- NOTE | 2025-03-13 09:41 | CM ---
CM reviewed chart, spoke with Lou liaison at [facility], confirmed bed for patient today. Patient scheduled for 2:30 p.m. ambulance time. CM will continue to follow for all discharge planning needs.
Plan; [facility], 2:30 p.m. ambulance transport
[facility]:
Report: [phone]
--- NOTE | 2025-03-13 13:48 | W.PN.HOSP.TC ---
Today's Communication/Plan
-
Follow up with PCP in future
Follow up with OP appraiser boats and marine for the future.
Follow up urologist for the future ureteral stone retrieval.
Assessment / Plan
Assessment / Plan
Assessment and Plan:
-Sepsis secondary to obstructive nephrolithiasis with bacteremia: Resolved
On arrival to the emergency department the patient had an elevated blood pressure of 194/101, respirations were 29, patient had leukocytosis with a white blood cell count of 13.4, elevated temperature of 100.4, CT scan of the abdomen showed
obstructive nephrolithiasis with a 5 mm obstructing stone in the left ureterovesicular junction.
Blood cultures -blood cultures positive with gram negative bacilli -E. coli
Urine culture -positive for E. coli -sensitive to Zosyn
Cephalexin 500mg BID to complete the course for 14 days.
Lactic acid 3.3 on 03/07/2025
Levophed discontinued, patient responded to fluid bolus 500 mL
Leukocytosis resolved on 03/12/2025 with a white blood cell count of 7.2
- Acute hypoxemic respiratory failure: Improving�close to baseline
Secondary to sepsis versus COPD exacerbation versus atelectasis
Incentive spirometry
Currently receiving budesonide twice a day and DuoNebs 3 times daily
Trelegy to be resumed at time of discharge
Smoking cessation counseling given
Acapella given
Maintain SpO2 greater than 88%
Again requires 2 L nasal cannula oxygen to maintain oxygen saturation above 88%�03/12/2025
Prednisone 40 mg for 5 days started
CXR ordered on 03/12/25 indicates cardiogenic pulmonary edema.
- Postrenal acute kidney injury on CKD stage IV: Unresolved- Improving
Patient presented to the emergency department with a creatinine of 1.8 elevated from baseline of 0.9
Secondary to 5 mm obstructing stone in the left ureterovesicular junction
Trend creatinine
Patient tolerated her left ureteroscopy and left lithotripsy with stent placement on 03/07/2025
Up and out of bed early mobility
Holt discontinued
Creatinine remains elevated at 1.8 -continue to trend
eGFR is been trended throughout this hospital stay and the patient has been below 30 persistently throughout her hospital admission. This indicates CKD stage IV in the setting of postrenal acute kidney injury.
-Chest discomfort: Monitoring
Patient had an episode of chest discomfort on the evening of 03/10/2025 -cardiology consulted
an ECG was conducted and troponins were drawn- trending down on 03/12/2025 with 0.34 troponin
ECG showed normal sinus rhythm, low voltage QRS, could not rule out anterior infarct which was seen on prior ECG
Troponins were elevated but is difficult to assess troponins in the setting of DENNY on CKD.
Appreciate cardiology recommendations�they recommend continuing aspirin 81 mg, continue Nitropaste, and they have decided against adding heparin for the time being
Echocardiogram showed ventricular ejection fraction is 55-60% with normal left ventricular function.
-Obstructive nephrolithiasis: Monitoring - improving
CT of the abdomen and pelvis showed a 5 mm obstructing stone in the left ureterovesical junction with mild hydroureter nephrosis.
Morphine sulfate and hydromorphone given for pain control
IV fluid support
Patient kept n.p.o. prior to procedure
Tamsulosin 0.4 mg
Hold nephrotoxic agents and renally dose medication
Patient tolerated her left ureteroscopy and left lithotripsy with stent placement on 03/07/2025
Holt discontinued
- Thrombocytopenia: Monitoring�improving
Patient had a platelet count of 95 on 03/08/2025, platelets 81 on 03/09/2025, platelets stable at 85 on 03/11/2025, platelets increased on 03/13/2025 with a value of 141
Likely secondary to sepsis/bacteremia
No signs of active bleeding presently
- Essential hypertension: Monitoring
Will continue to follow her blood pressure and trend
- Hypothyroidism:
TSH ordered -patient does not have any hypothyroid medications on their home med list
-Nicotine dependence:
Patient smokes approximately 1 pack a day
Tobacco cessation education given at the bedside
Continue nicotine patches
Full CODE STATUS
DVT prophylaxis subcu heparin
Regular diet
Imaging:
-Abdomen/pelvis CT conducted on 03/07/2025:
Image quality is mildly degraded by motion artifact.
There is an approximately 7 mm obstructing stone in the proximal left ureter with associated mild left-sided hydronephrosis. There is asymmetric perinephric stranding along the left kidney for which infection cannot be excluded. Recommend
correlation with urinalysis.
The right kidney is mildly atrophic with a 3 mm nonobstructing stone in the inferior pole.
There is mild wall thickening along the ascending colon likely secondary to underdistention although GI follow-up may be considered.
Aortobiiliac endograft with excluded aneurysm sac measuring approximately 3.4 cm. There is possible mild focal prominence of the distal descending thoracic aorta measuring 3.6 cm. Consider follow-up CTA chest for further evaluation.
- Abdominal x-ray conducted on 03/07/2025
Fluoroscopy provided and static images obtained for procedure guidance
-Subtle linear density within the left lower lung, new from previous exams, and likely mild atelectasis.
Anticipated Discharge: Today
Subjective/Interval History
-
Date of Service: March 13, 2025
74 yrs F has a concern for mild shortness of breath which is not associated with chest pain, palpitation, dizizness.
She had a bowel movement for today, she is on 2 L OXYGEN WITH NASAL CANNULA (pO2 > 94)
Objective Data
-
Labs:
03/13/25 06:52
03/13/25 06:52
Laboratory Results
pH 7.20 (7.35-7.45) L 03/07/25 11:00
pCO2 36 mmHg (32-35) H 03/07/25 11:00
pO2 88 mmHg (83-108) 03/07/25 11:00
HCO3 14.1 mmol/L (21-28) L* 03/07/25 11:00
Lactic Acid 3.3 mmol/L (0.7-2.0) H 03/07/25 08:56
Total Bilirubin 0.8 mg/dl (0.2-1.3) 03/13/25 06:52
AST 24 U/L (14-36) 03/13/25 06:52
ALT 24 U/L (0-35) 03/13/25 06:52
Alkaline Phosphatase 44 U/L (38-126) 03/13/25 06:52
Troponin I 0.340 ng/ml H* 03/12/25 04:29
Laboratory Results
03/13/25
06:52
WBC 7.2
Hgb 12.9
Hct 38.8
Plt Count 141 D
Sodium 136
Potassium 4.6
Chloride 111 H
Carbon Dioxide 24
BUN 55 H
Creatinine 1.7 H
Glucose 86
Calcium 8.2 L
Total Bilirubin 0.8
AST 24
ALT 24
Alkaline Phosphatase 44
Vital Signs:
Vital Signs
Temp Pulse Resp BP Pulse Ox
97.5 F 87 16 145/84 96
03/13/25 07:00 03/13/25 07:00 03/13/25 07:00 03/13/25 07:00 03/13/25 07:00
I&O
03/12/25 03/13/25 03/14/25
06:59 06:59 06:59
Intake Total 2160 / 2160 480 / 480
Balance 2160 / 2160 480 / 480
Review of Systems
-
History Source: Patient
Constitutional: Reports Weight Gain (INCREASED FROM 94.4 TO 98 KG WITHIN 4 DAYS. )
Respiratory: Reports Trouble Breathing (SHORTNESS OF BREATH)
Cardiac: Reports No Symptoms
Abdomen/GI: Reports No Symptoms
Genitourinary: Reports No Symptoms
Musculoskeletal: Reports No Symptoms
Hematologic / Lymphatic: Reports No Symptoms
Physical Exam
-
General: Well Nourished
Respiratory: Crackles (FINE CRACKLES AT RIGHT SIDE LOWER LOBE.)
Cardiac: Regular Rhythm and S1/S2
GI: Soft, Nontender and Nondistended
Genito-urinary: No Costovertebral Tender
Skin: Warm
Neuro: AO x 3
Hematologic / Lymphatic: No Lymphadenopathy
Psych: Calm
[2025-03-13 14:30] VITALS: BP 169/95
--- NOTE | 2025-03-13 14:46 | PTCARENOTE ---
Blood pressure was taken and ir=t was elevated 169/95 , PCP was notified , acknowledged.
--- NOTE | 2025-03-14 15:55 | W.DCSUMMARY ---
Documented by User: Britton Rios MD, Resident 03/14/25 18:55
Discharge Summary
Discharge Data
Date of Admission: 03/07/25
Date of Discharge: 03/13/25
Total time spent discharging patient (in min): 20 mins
-
Pending Results: No
Additional Pending Results:
Discharging Physician : Dr Britton Rios
Dr Russ Trevino
Disposition : SNF
Primary care physician : Physician Private
Principal Discharge diagnosis : Acute Kidney Injury with NAGMA due to ATN.
Chronic Discharge diagnosis :
Essential hypertension managed with metoprolol 25 mg p.o.
Hypothyroidism managed with levothyroxine 50 mcg.
Nicotine dependence continued nicotine patches.
PAD s/p LE stents
Hospital Course : 74-year-old smoking female arrived to ER ON 03/07 with history of hypertension, hypothyroid and renal stones presented with left flank pain and noted to be septic, placed on antibiotics and urology performed left uteroscopy and
laser lithotripsy and stent placement-pressfitter consulted for sepsis/critical care management. On postop day 1 patient developed wheezes, WBC count increased, platelets decreased, creatinine up to 2.5, blood culture grew GNR's. Sepsis secondary
to obstructive nephrolithiasis with bacteremia was diagnosed and IV Zosyn started. Throughout the hospitalization patient was stabilized with IV bicarb drip, Zosyn, and CBC, CMP, renal parameters monitored. Patient experienced noncardiac chest pain
along with troponin elevation, ECG minimal ST depression that was stable over multiple ECGs.cardiology was consulted and ordered Nitropaste. COPD with acute exacerbation was managed with prednisone 40 mg, budesonide and DuoNebs 3 times a day. At
the time of discharge Holt's catheter discontinued. Cephalexin 500 mg twice daily was prescribed while on discharge for 14 days to the sepsis secondary to obstructive nephrolithiasis. Patient was stable at the time of discharge.
Follow-up with family doctor within 1 to 2 weeks of discharge possible, Follow-up with labor relations director, branch employment coordinator and fishery division chief within 2 weeks of discharge from hospital.
Follow-up in office with urologist for ureteral stone retrieval
Important imaging findings :
On 03/07/25: CT of the abdomen and pelvis was taken down in the emergency department which showed a 5 mm obstructing stone in the left ureterovesical junction. Mild hydro ureteral nephrosis was seen as well. Moderate perinephric fat stranding was
seen.
Procedure findings :
On 03/07/25: left ureteroscopy and laser lithotripsy stent placement.
DVT prophylaxis: Subcutaneous heparin
Discharge Plan
-
Patient Disposition: [facility]/SNF
Discharge Diagnosis/Procedures: E coli bacteremia
Infected left kidney stone s/p ureteral stent
Sepsis
DENNY 2/2 septic ATN
NAGMA
COPD exacerbation with hypoxemic respiratory failure
Tobacco use
PAD s/p LE stents
Condition: Fair
Diet: No added salt
Activity: As tolerated
Driving Restrictions: Not until seen by your Dr
Blood Work: BMP and CBC 5 days after discharge
Others Tests: Possible stress test with labor relations director
Other Services: PT and OT
Specialty Instructions: Weigh Daily- Call MD for wt gain/loss 3 lbs overnight/5 lbs in 1 week
Activity Restrictions/Additional Instructions:
Follow-up with family doctor within 1 to 2 weeks of discharge possible
Follow-up with labor relations director, branch employment coordinator and fishery division chief within 2 weeks of discharge from hospital
Follow-up in office with urologist for ureteral stone retrieval
Instructions: Ureteral stent placement - Discharge instructions
Referrals:
Zach Luis MD [Active, Urology]
Referral Note: you have a stent in the left kidney and bladder Expect blood in urine frequencyand urgency the entire time stent is in place we broke a lg stone that was causing your problems but still have a stone in left kidney We
recommend in 2- 4 weks to remove the stent in the oip room and address the stone at the same time This can be done here at [facility] OR with your usual urolgist If desire ti do here serge Dr luis [phone] and we will schedule your
next procedure If you wanto see your usual uro,ogist please take ct scan disk with you
UNKNOWN - PT DOES,NOT KNOW [Unknown Provider]
Additional Discharge Medication Instructions: Continue with Keflex 500 mg BID for 8 more days after discharge from hospital
Duoneb Q4HPRN for SOB or wheeze
start nicotine patches
Prescriptions:
New
ipratropium-albuterol 0.5 mg-3 mg(2.5 mg base)/3 mL Solution For Nebulization
3 ml inhalation R Q4HPRN PRN (Reason: SOB/wheeze) 30 Days Qty: 90 0RF
cephalexin 500 mg Capsule
500 mg PO BID 8 Days Qty: 16 0RF
nicotine 21 mg/24 hr Patch 24 Hour
21 mg transdermal DAILY Qty: 28 0RF
Continued
albuterol sulfate 1 PUFF HFA aerosol inhaler
2 puff inhalation R QID Qty: 0 0RF
oxycodone-acetaminophen 5 MG/325 MG tablet
1 tab PO Q6HPRN PRN (Reason: pain) Qty: 15 0RF
tamsulosin 0.4 MG capsule
0.4 mg PO DAILY Qty: 5 0RF
ondansetron 4 MG tablet,disintegrating
4 mg PO TIDPRN PRN (Reason: nausea/vomiting) Qty: 12 0RF
aspirin 81 mg Tablet,Delayed Release (Dr/Ec)
81 mg PO DAILY
atorvastatin 40 mg Tablet
40 mg PO HS
Entresto 24-26 mg Tablet
1 tab PO BID
levothyroxine 50 mcg Tablet
50 mcg PO DAILY
dapagliflozin propanediol [Farxiga] 10 mg Tablet
10 mg PO DAILY
metoprolol succinate 25 mg Tablet Extended Release 24 Hr
25 mg PO DAILY
Trelegy Ellipta
1 puff inhalation DAILY
Discharge Orders:
Discharge Patient (As Directed); Ordered 03/13/25
Ordered By: Uriel Solano
Discharge Date and Time
Discharge Date/Time: 03/13/25 02:40
Print Language: MOLDOVAN

Documented by User: Uriel Solano, DO 03/15/25 15:19
Discharge Summary
Discharge Data
Date of Admission: 03/07/25
Date of Discharge: 03/15/25
Total time spent discharging patient (in min): 33 mins
Discharge Plan
-
Patient Disposition: [facility]/SNF
Discharge Diagnosis/Procedures: E coli bacteremia
Infected left kidney stone s/p ureteral stent
Sepsis
DENNY 2/2 septic ATN
NAGMA
COPD exacerbation with hypoxemic respiratory failure
Tobacco use
PAD s/p LE stents
Condition: Fair
Diet: No added salt
Activity: As tolerated
Driving Restrictions: Not until seen by your Dr
Blood Work: BMP and CBC 5 days after discharge
Others Tests: Possible stress test with labor relations director
Other Services: PT and OT
Specialty Instructions: Weigh Daily- Call MD for wt gain/loss 3 lbs overnight/5 lbs in 1 week
Activity Restrictions/Additional Instructions:
Follow-up with family doctor within 1 to 2 weeks of discharge possible
Follow-up with labor relations director, branch employment coordinator and fishery division chief within 2 weeks of discharge from hospital
Follow-up in office with urologist for ureteral stone retrieval
Instructions: Ureteral stent placement - Discharge instructions
Referrals:
Zach Luis MD [Active, Urology]
Referral Note: you have a stent in the left kidney and bladder Expect blood in urine frequencyand urgency the entire time stent is in place we broke a lg stone that was causing your problems but still have a stone in left kidney We
recommend in 2- 4 weks to remove the stent in the oip room and address the stone at the same time This can be done here at [facility] OR with your usual urolgist If desire ti do here serge Dr luis [phone] and we will schedule your
next procedure If you wanto see your usual uro,ogist please take ct scan disk with you
UNKNOWN - PT DOES,NOT KNOW [Unknown Provider]
Additional Discharge Medication Instructions: Continue with Keflex 500 mg BID for 8 more days after discharge from hospital
Duoneb Q4HPRN for SOB or wheeze
start nicotine patches
Prescriptions:
New
ipratropium-albuterol 0.5 mg-3 mg(2.5 mg base)/3 mL Solution For Nebulization
3 ml inhalation R Q4HPRN PRN (Reason: SOB/wheeze) 30 Days Qty: 90 0RF
cephalexin 500 mg Capsule
500 mg PO BID 8 Days Qty: 16 0RF
nicotine 21 mg/24 hr Patch 24 Hour
21 mg transdermal DAILY Qty: 28 0RF
Continued
albuterol sulfate 1 PUFF HFA aerosol inhaler
2 puff inhalation R QID Qty: 0 0RF
oxycodone-acetaminophen 5 MG/325 MG tablet
1 tab PO Q6HPRN PRN (Reason: pain) Qty: 15 0RF
tamsulosin 0.4 MG capsule
0.4 mg PO DAILY Qty: 5 0RF
ondansetron 4 MG tablet,disintegrating
4 mg PO TIDPRN PRN (Reason: nausea/vomiting) Qty: 12 0RF
aspirin 81 mg Tablet,Delayed Release (Dr/Ec)
81 mg PO DAILY
atorvastatin 40 mg Tablet
40 mg PO HS
Entresto 24-26 mg Tablet
1 tab PO BID
levothyroxine 50 mcg Tablet
50 mcg PO DAILY
dapagliflozin propanediol [Farxiga] 10 mg Tablet
10 mg PO DAILY
metoprolol succinate 25 mg Tablet Extended Release 24 Hr
25 mg PO DAILY
Trelegy Ellipta
1 puff inhalation DAILY
Discharge Orders:
Discharge Patient (As Directed); Ordered 03/13/25
Ordered By: Uriel Solano
Discharge Date and Time
Discharge Date/Time: 03/13/25 02:40
Print Language: MOLDOVAN
== END 2025-03-13 02:40 | DRG 853 ==
LOC: 4 WEST ACU 09:02
PROVIDERS: Nurse Practitioner Family; ADMITTING PHYSICIAN Internal Medicine; ATTENDING PHYSICIAN Internal Medicine; CONSULT PHYSICIAN Internal Medicine Cardiovascular Disease; CONSULT PHYSICIAN Internal Medicine Critical Care Medicine; CONSULT PHYSICIAN Specialist; EMERGENCY PHYSICIAN Emergency Medicine
PROC: 0T778DZ Dilation of Left Ureter with Intraluminal Device, Via Natural or Artificial Opening Endoscopic (ICD-10-PCS; 2025-03-07)
PROC: 0TF78ZZ Fragmentation in Left Ureter, Via Natural or Artificial Opening Endoscopic (ICD-10-PCS; 2025-03-07)
DX: A41.51 Sepsis due to Escherichia coli [E. coli] (principal); J96.01 Acute respiratory failure with hypoxia; R65.21 Severe sepsis with septic shock; N17.0 Acute kidney failure with tubular necrosis; E87.20 Acidosis, unspecified; N13.6 Pyonephrosis; J44.1 Chronic obstructive pulmonary disease with (acute) exacerbation; I5A Non-ischemic myocardial injury (non-traumatic); D69.59 Other secondary thrombocytopenia; N18.4 Chronic kidney disease, stage 4 (severe); E66.9 Obesity, unspecified; E03.9 Hypothyroidism, unspecified; I12.9 Hypertensive chronic kidney disease with stage 1 through stage 4 chronic kidney disease, or unspecified chronic kidney disease; F17.210 Nicotine dependence, cigarettes, uncomplicated; R73.9 Hyperglycemia, unspecified; G47.33 Obstructive sleep apnea (adult) (pediatric); I73.9 Peripheral vascular disease, unspecified; H91.90 Unspecified hearing loss, unspecified ear; Z68.37 Body mass index [BMI] 37.0-37.9, adult; Z87.442 Personal history of urinary calculi; Z95.820 Peripheral vascular angioplasty status with implants and grafts
CPT/HCPCS: 36600; 71045; 71046; 74018; 74176; 76000; 80048; 80053; 81003; 81015; 82805; 83036; 83605; 83735; 84443; 84484; 85025; 85027; 86022; 87040; 87077; 87086; 87154; 87186; 87205; 93005; 93306; 94640; 96361; 96374; 96375; 97110; 97163; 97167; 97530; 99285; C2617; J7030